=== PATIENT | female | born 1970 | race Caucasian/White ===

== ENCOUNTER → 2018-03-24 11:21 | Outpatient (CLI) | payer OTHER, SELFPAY ==
--- NOTE | 2018-03-24 11:24 | US_ITS ---
STUDY: ULTRASOUND OF THE FEMALE PELVIS - COMPLETE REASON FOR EXAM: Female, 47 years old. Dysfunctional uterine bleeding. LMP: March 19, 2018 TECHNIQUE: Transabdominal and Transvaginal TECHNICAL QUALITY: Adequate. COMPARISON: None. FINDINGS: The uterus is anteverted and is in a midline position. The uterus measures 8.5 x 4.7 x 6.3 cm. Normal uterine cervix. The endometrium measures 12.0 mm in thickness, and is hyperechoic. There is no demonstrated endometrial mass. There is no demonstrated myometrial mass. I.U.D. - The patient does not have an I.U.D. The right ovary is visualized. The right ovary measures 2.1 x 1.8 x 1.7 cm. There is no right ovarian cyst or ovarian mass. There is no visualized right adnexal mass or complex lesion. There is normal arterial and normal venous vascularity. The left ovary is visualized. The left ovary measures 3.5 x 2.5 x 1.5 cm. There is no left ovarian cyst or ovarian mass. There is no visualized left adnexal mass or complex lesion. There is normal arterial and normal venous vascularity. There is no fluid in the cul-de-sac. The pre void volume of the bladder was 50.7 ml. Polycystic ovary disease: No. US/Pelvic (Non ) IMPRESSION: Thickened endometrial stripe. Electronically Signed: Thania Campos MD at 15:11 EDT Tel , Service support ,
--- NOTE | 2018-03-24 11:45 | US_ITS ---
STUDY: ULTRASOUND OF THE FEMALE PELVIS - COMPLETE REASON FOR EXAM: Female, 47 years old. Dysfunctional uterine bleeding. LMP: March 19, 2018 TECHNIQUE: Transabdominal and Transvaginal TECHNICAL QUALITY: Adequate. COMPARISON: None. FINDINGS: The uterus is anteverted and is in a midline position. The uterus measures 8.5 x 4.7 x 6.3 cm. Normal uterine cervix. The endometrium measures 12.0 mm in thickness, and is hyperechoic. There is no demonstrated endometrial mass. There is no demonstrated myometrial mass. I.U.D. - The patient does not have an I.U.D. The right ovary is visualized. The right ovary measures 2.1 x 1.8 x 1.7 cm. There is no right ovarian cyst or ovarian mass. There is no visualized right adnexal mass or complex lesion. There is normal arterial and normal venous vascularity. The left ovary is visualized. The left ovary measures 3.5 x 2.5 x 1.5 cm. There is no left ovarian cyst or ovarian mass. There is no visualized left adnexal mass or complex lesion. There is normal arterial and normal venous vascularity. There is no fluid in the cul-de-sac. The pre void volume of the bladder was 50.7 ml. Polycystic ovary disease: No. US/Transvaginal Non- IMPRESSION: Thickened endometrial stripe. Electronically Signed: Thania Campos MD at 15:11 EDT Tel , Service support ,
== END ==
PROVIDERS: Family Provider Family Medicine; PCP Family Medicine; Visit Provider Obstetrics & Gynecology
DX: N93.9 Abnormal uterine and vaginal bleeding, unspecified (principal); N93.8 Other specified abnormal uterine and vaginal bleeding
CPT/HCPCS: 76830; 76856; 93976

== ENCOUNTER → 2018-04-22 09:43 | Outpatient (CLI) | payer OTHER, SELFPAY ==
--- NOTE | 2018-04-22 12:22 | PFTCOMP ---
COMPLETE PULMONARY FUNCTION TEST INTERPRETATION Brief HPI: Patient is a 47 year old female, currently under the care of myself, who presents to [facility] for complete pulmonary function tests secondary to diagnosis of asthma. Respiratory therapist reports good effort and reproducible results. Interpretation: Forced expiration spirometry shows no large airways obstructive ventilatory defect with an FEV1 of 74% predicted. There is no significant bronchodilator response by ATS criteria. Spirograms are of good quality and plateau normally. The respiratory flow volume loop shows a normal pattern. Lung volumes by body plethysmography show a normal total lung capacity at 5.3 L, 106% predicted. All other lung volumes are within normal limits. Diffusion capacity by carbon monoxide is at the lower limit of normal at 65% predicted. The airway resistance is elevated. Compared to previous pulmonary function tests from 04/07/2017, there has been a significant improvement in lung volumes. Impression: These pulmonary function tests are grossly within normal limits. Diffusion capacity is at the lower limit of normal, but improved from previous.
--- NOTE | 2018-04-22 12:25 | PFTCOMP_ITS ---
COMPLETE PULMONARY FUNCTION TEST INTERPRETATION Brief HPI: Patient is a 47 year old female, currently under the care of myself, who presents to [facility] for complete pulmonary function tests secondary to diagnosis of asthma. Respiratory therapist reports good effort and reproducible results. Interpretation: Forced expiration spirometry shows no large airways obstructive ventilatory defect with an FEV1 of 74% predicted. There is no significant bronchodilator response by ATS criteria. Spirograms are of good quality and plateau normally. The respiratory flow volume loop shows a normal pattern. Lung volumes by body plethysmography show a normal total lung capacity at 5.3 L , 106% predicted. All other lung volumes are within normal limits. Diffusion capacity by carbon monoxide is at the lower limit of normal at 65% predicted. The airway resistance is elevated. Compared to previous pulmonary function tests from 04/07/2017, there has been a significant improvement in lung volumes. Impression: These pulmonary function tests are grossly within normal limits. Diffusion capacity is at the lower limit of normal, but improved from previous.
== END ==
PROVIDERS: Family Provider Family Medicine; PCP Family Medicine; Visit Provider Internal Medicine Critical Care Medicine
DX: J45.20 Mild intermittent asthma, uncomplicated (principal)
CPT/HCPCS: 94060; 94726; 94729

== ENCOUNTER → 2018-10-01 10:07 | Outpatient (CLI) | payer OTHER, SELFPAY ==
[2018-10-01 12:44] LABS: Microalbumin,Random Urine 26.4 mg/L (NO RANGE EST.); Microalbumin:Creatinine Ratio 13.7 mg/g CRE (<30 mg/g CRE)
[2018-10-01 13:01] LABS: AST(SGOT) 34 U/L (15-37); Alanine Aminotransfer ALT/SGPT 58 U/L (13-56); Albumin, Serum 3.6 g/dL (3.2-5.0); Alkaline Phosphatase 80 U/L (45-117); Anion Gap 10 (5-15); BUN 20 mg/dL (7-18); Calcium,Total 9.1 mg/dL (8.5-10.1); Chloride 103 mmol/L (98-107); Cholesterol 151 mg/dL (200); Creatinine, Serum 0.87 mg/dL (0.55-1.02); EST Glomerular Filtration Rate 74 mL/min (>60); Est Glom Filt Rate - Afr Amer 89 mL/min (>60); Globulin 3.7 g/dL (2.2-4.2); Glucose 94 mg/dL (74-106); High Density Lipoprotein 45 mg/dL; Potassium 3.6 mmol/L (3.5-5.1); Protein, Total 7.3 g/dL (6.4-8.2); Sodium Level 143 mmol/L (136-145); Triglycerides 97 mg/dL; Very Low Density Lipoprotein 19 mg/dL (5-40)
[2018-10-01 13:03] LABS: Hemoglobin A1c 6.9 % (4.2-6.3)
--- OUTSIDE RECORDS SUMMARY | 2018-12-05 17:38 | XMS RPT_ITS ---
:1970 Author Organization OHIP Care Team Providers Name Role Phone LUCINDA LI (PATIENT ACCOUNTS COORDINATOR) Attending Unavailable SAVAGE CRESPO Referring Unavailable Malys, Jessa Attending Unavailable Malys, Jessa Referring Unavailable Malys, Jessa Primary Care Unavailable Abi Watts Attending Unavailable Abi Watts Referring Unavailable Malys, Jessa Primary Care Unavailable Abi Watts Attending Unavailable Malys, Jessa Referring Unavailable Malys, Jessa Primary Care Unavailable Michael Roque Attending Unavailable Michael Roque Referring Unavailable Malys, Jessa Primary Care Unavailable Michael Roque Attending Unavailable Malys, Jessa Referring Unavailable Malys, Jessa Primary Care Unavailable Michael Roque Attending Unavailable Michael Roque Referring Unavailable PROBLEMS PROBLEMS DATE TYPE CONDITION / CODE ATTENDING STATUS SOURCE 10/01/2018 Unknown 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, 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 / Repository E11.9(ICD-10) 10/01/2018 Unknown E78.00 - Pure Malys, Jessa Active [facility] a, unspecified / Hospital E78.00(ICD-10) Repository 10/01/2018 Unknown I10 - Essential MalJessa hoover Active [facility] (primary) [facility] hypertension / Hospital I10(ICD-10) Repository 10/01/2018 Unknown Z51.81 - Encounter Jessa Scott Active [facility] for therapeutic [facility] drug level Hospital monitoring / Repository Z51.81(ICD-10) 05/06/2018 Unknown J45.20 - Mild JudeMichael Active [facility] intermittent [facility] asthma, Hospital uncomplicated / Repository J45.20(ICD-10) 03/31/2018 Unknown N93.9 - Abnormal Marcanthony, Active [facility] uterine and vaginal Abi [facility] bleeding, Hospital unspecified / Repository N93.9(ICD-10) 03/11/2018 Active Unknown / LI, Active [facility] UNK(Unknown) LUCINDA (PATIENT ACCOUNTS COORDINATOR) Main [place] Repository PROCEDURES PROCEDURES No Procedure Records FoundRESULTS RESULTS MICROALB:CREAT Collected: 10/01/2018 Status: F [facility] 10:12 AM [facility] REPOSITORY TYPE CODE TESTS RESULT OUT OF RANGE REFERENCE UNITS LAB L501.1200 NO RANGE EST. mg/dL Normal UR CREAT 193.00 LAB L502.0500 NO RANGE EST. mg/L Normal 26.4 MICROALBUMIN ,UR LAB L502.0600 <30 mg/g CRE mg/g CRE Normal 13.7 MALB:CREAT Performed By: #### L502.0250 #### [facility] [place], [place], [address] COMPREHENSIVE METABOLIC Collected: 10/01/2018 Status: F Source: [facility] PROFIL 10:12 AM [facility] REPOSITORY TYPE CODE TESTS RESULT OUT OF RANGE REFERENCE UNITS LAB L501.0100 74-106 mg/dL Normal GLU 94 Result Comment: Please note revised GLUCOSE reference range effective 2017. LAB L501.1000 7-18 mg/dL High BUN 20 LAB L501.1100 0.55-1.02 mg/dL Normal CREAT,SERUM 0.87 Result Comment: The validity of the calculated GFR AND GFRAA in patients over 70 years has not been determined. Clinical correlation is essential. LAB L501.1110 >60 mL/min Normal EST GFR 74 Result Comment: Non- GFR Calc LAB L501.1115 >60 mL/min Normal EST GFR - AA 89 Result Comment: GFR Calc LAB L501.1300 10-20 RATIO High BUN/CRE 23.0 LAB L501.1500 6.4-8.2 g/dL T Normal PROT 7.3 LAB L501.1800 3.2-5.0 g/dL Normal ALB 3.6 LAB L501.1950 2.2-4.2 g/dL Normal GLOB 3.7 LAB L501.2000 0.9-2.4 RATIO Normal A/G 1.0 LAB L501.2200 8.5-10.1 mg/dL CA Normal 9.1 LAB L501.4100 15-37 U/L Normal AST 34 LAB L501.4305 45-117 U/L Normal ALK P 80 LAB L501.4405 13-56 U/L High ALT 58 LAB L501.4600 0.20-1.00 mg/dL T Normal BILI 0.50 LAB L501.5300 136-145 mmol/L NA Normal 143 LAB L501.5600 3.5-5.1 mmol/L K Normal 3.6 LAB L501.5900 98-107 mmol/L CL Normal 103 LAB L501.6100 21.0-32.0 mmol/L Normal CO2 30.0 LAB L501.6200 5-15 Normal GAP 10 Performed By: #### L500.4050, L500.4100 #### [facility] [address] [place], [place], [address] LIPID PROFILE Collected: 10/01/2018 Status: F Source: [facility] 10:12 AM [facility] REPOSITORY TYPE CODE TESTS RESULT OUT OF RANGE REFERENCE UNITS LAB L501.4900 200 mg/dL Normal CHOL 151 Result Comment: <200 mg/dL Desirable 200-240 mg/dL Borderline >240 mg/dL High Risk LAB L501.5000 mg/dL Normal TRIG 97 Result Comment: The drugs N-Acetylcysteine and Metamizole may falsely depress this assay. Serum Triglycerides Reference Interval Normal <150 mg/dL Borderline high 150 - 199 mg/dL High 200 - 499 mg/dL Very High > or = 500 mg/dL LAB L501.6400 mg/dL Normal HDL 45 Result Comment: The drugs N-Acetylcysteine and Metamizole may falsely depress this assay. Reference Range HDL <40 mg/dL Low HDL Cholesterol HDL >or= 60 mg/dL High HDL Cholesterol LAB L501.6500 0-130 mg/dL Normal LDL 87 LAB L501.6600 5-40 mg/dL Normal VLDL 19 Performed By: #### L500.4050, L500.4100 #### [facility] [address] [place], [address] HEMOGLOBIN A1C Collected: 10/01/2018 Status: F Source: [facility] 10:12 AM [facility] REPOSITORY TYPE CODE TESTS RESULT OUT OF RANGE REFERENCE UNITS LAB L501.9985 4.2-6.3 % High HGB A1C 6.9 Performed By: #### L501.9985 #### [facility] [address] [place], [address] PULMONARY VISIT REPORT Observed: 04/28/2018 Status: F Source: [facility] 10:45 AM [facility] REPOSITORY [facility] [address] [place] [address] OFFICE VISIT Date of Service: 04/28/18 MR#: [id number] Acct: [id number] Name: CARLOS MON Rep #: [id number] : 1970 Provider: Michael Roque MD Age/Sex: 47/F [place] [facility] [place] Status: Signed Assessment AND Plan Problems 1. Asthma, mild intermittent, well-controlled J45.20 2. AMELIE (obstructive sleep apnea) G47.33 Plan Patient appears to be doing well from a pulmonary perspective. Patient has had some weight gain, but overall is doing well and responsive to AMELIE therapy. Patient is only requiring as needed albuterol, so no maintenance therapy is indicated. Lung volumes have normalized. Decrease in DLCO likely secondary to known fibrosis following radiation therapy. Patient is requesting transition to [facility] for insurance reasons. Continue current AMELIE therapy and as needed albuterol. Encourage weight loss. HPI 1 Y FU: Chief Complaint: Review test results Details: Patient is a 47-year-old female, currently under the care of Dr. Scott, who presents for evaluation secondary to recent testing. Since last visit, patient denies any ER visits, hospitalizations or prednisone burst. Patient states that she feels subjectively unchanged compared to previous visit. Patient reports that she has a Ventolin inhaler at home. Patient estimates that she uses it every 3-4 months and is typically associated with a URI. Patient has not reported any nocturnal cough, dyspnea on exertion or chest pain. No wheezing is been reported. Patient reports that she has been compliant with AMELIE therapy. Patient states that she wears this every night and wakes up refreshed. On the rare occasion that she forgets to use her machine, patient does report the next day will be a tough one. Patient has had some increase in weight. Testing personally reviewed with the patient Complete PFT (04/22/2018): Grossly within normal limits with improved lung volumes compared to previous (FVC 76%, FEV1 72%, TLC 106%, DLCO 65%) Intake Vital Signs04/28/18 Height 5 ft 4 in 04/28/18 Weight: 81.647 kg Intake Visit Reasons: 1 Y FU DME Vendor: [employer] Accompanied by: Self Allergies naproxen sodium [From Aleve] Allergy (Verified 04/28/18 10:12) Itching, AIRWAY SWELLS amoxicillin Adverse Reaction (Verified 04/28/18 10:12) NAUSEA/VOMITTING hydrocodone bitartrate [From Vicodin] Adverse Reaction (Verified 04/28/18 10:12) NAUSEA/VOMITTING Medications Atenolol [Tenormin (beta bonnie)] 50 mg PO DAILY 11/26/15 [History Confirmed 04/28/18] Lisinopril/Hydrochlorothiazide [Zestoretic 06/25.5 Tablet] 1 tab PO DAILY 11/26/15 [History Confirmed 04/28/18] Potassium Chloride [K-Dur] 10 meq PO DAILY 11/26/15 [History Confirmed 04/28/18] Sertraline HCl [Zoloft] 50 mg PO DAILY 11/26/15 [History Confirmed 04/28/18] Albuterol Inhaler [Ventolin Hfa (SP)] 2 puff INHALATION [id number] #[id number] inhaler 01/16/16 [Rx Confirmed 04/28/18] Clindamycin [Cleocin] 450 mg PO TID #63 cap 01/16/16 [Rx Confirmed 04/28/18] tamoxifen 20 mg tablet 20 mg PO QDAY 10/05/17 [History Confirmed 04/28/18] oxycodone-acetaminophen 5 mg-325 mg tablet 1 tab PO Q4H PRN #20 tab 03/22/18 [Rx Confirmed 04/28/18] tranexamic acid 650 mg tablet 1,300 mg PO Q8H PRN 5 Days #30 tab 03/22/18 [Rx Confirmed 04/28/18] PFSH Medical History HTN (hypertension) (Chronic) History of breast cancer (Acute) Lung collapse (Acute) CPAP (continuous positive airway pressure) dependence (Acute) Surgical History S/P lumpectomy, left breast (Acute) Family History Grandmother Breast cancer Father Hypertension Social History Smoking Status: Never smoker alcohol intake: never substance use type: does not use caffeine: No frequency: 1-2 times per week seatbelt use: always do you feel safe at home: Yes additional social history: Tulio Gillis Patient is a stay at home mom Review of Systems Const CONSTITUTIONAL: Negative anorexia, body ache, chills, daytime sleepiness, fever(s), night sweats, oral thrush, stops breathing during sleep, weight loss, sleeping in chair, fatigue, weight loss, weight gain, frequent colds, seasonal allergies, other, headache(s) or orthopnea EETM Ear Nose Throat Mouth: Positive sinus pressure; negative hoarseness, dry mouth in morning, change in vision, itchy eyes, eye pain, swallowing Difficulty, ear pain, headache(s), mouth pain, nasal congestion, nasal discharge, sinus pain, sore throat, other, hard of hearing, hearing normal, nose bleed or post nasal drip Cardio Cardiovascular: Negative chest pain, chest pain at rest, chest pain with activity, irregular heart rhythm, edema, shortness of breath when lying down, palpitations, other or murmur Resp Respiratory: Positive as per HPI; negative shortness of breath, pain with cough, wheezing, chest congestion, cough, chest tightness, pain on inspiration, inhalers, increase use of rescue inhalers, snoring, apnea or other Gastro Gastrointestional: Negative bloody stools, change in appetite, difficulty swallowing, reflux, hematemesis, melena stool, loose stool, constipation or other Genitourinary: Negative blood in urine, nocturia, pain with urination or other Musc Musculoskeletal: Negative body pain, back pain, neck pain or other Skin/Breast Skin/Breast: Negative dry skin, itching, unusual bruising, breast lump, other or rash Neuro Neurological: Negative restless legs, confusion, weakness or other Psych Psychocological: Negative abnormal sleep pattern, anxiety, thoughts of hurting self/others, hopelessness or other Lymph Lymphatic: Negative easy bleeding, easy bruising, other or swollen lymph nodes Exam Const Constitutional: Positive conversant, cooperative, in no acute respiratory distress, healthy appearing, well developed, well nourished, good hygiene and obese; negative smells of smoke, frail appearing or wearing supplemental oxygen Head Head: Positive normocephalic and atraumatic; negative cyanosis of lips/distal nose, frontal sinus tenderness or maxillary sinus tenderness Eyes Eye: Positive clear conjunctiva; negative nystagmus, scleral abnormality or cataract present Ears Ear: Positive external ears normal; negative hard of hearing or hearing normal Nose Nose: Positive external nose normal, septum normal and no nasal discharge; negative epistaxis or nasal polyp Mouth Mouth: Positive oral mucosae normal, no lesions, good dentition and crowded posterior oropharynx; negative post nasal drip, malodorous breath or oral thrush present Mallampati Score: III: Mallampati Score Neck Neck: Positive normal visual inspection, full ROM and trachea midline; negative lymphadenopathy or JVD Chest Wall Chest: Positive normal inspection of the chest and symmetric chest movement; negative crepitus or tenderness Resp lung sounds: Positive clear to auscultation, good air exchange, normal expiratory time and normal respiratory effort; negative wheezes, rhonchi, rales, use of accessory muscles, wheeze present on forced exhalation or dullness to percussion Cardio Cardiac: Positive regular rate, regular rhythm, S1 normal, S2 normal, rub, gallop and normal PMI; negative murmur GI GI: Positive normal to inspection, normal bowel sounds and obese; negative distended, ascites or epigastric tenderness Genitourinary: Positive deferred Musc Musculoskeletal: Positive steady gait; negative using an assistive device for ambulation, kyphosis or scoliosis Skin Pulmonary Skin Exam: Positive intact; negative rash, erythema, ulcers, lesion or dermal atrophy Pruitt skin Pulses Pulse: Yes radial pulses present Extremities Extremities: Yes capillary refill normal, No clubbing, No cyanosis, No edema, No stasis dermatitis Neuro Neurologic: Yes conversant, Yes no focal neuro deficits, Yes normal concentration, Yes understands questions, Yes cooperative, Yes normal cognition, Yes normal coordination Lymph Lymphatic: No lymphadenopathy Psych Appearance: Positive grossly normal Mental Status: Positive mental status grossly normal Mood: Positive congruent mood Affect: Positive normal affect Coding Level of Care Code Off vis,est,level 3 Diagnoses Asthma, mild intermittent, well-controlled J45.20 AMELIE (obstructive sleep apnea) G47.33 04/28/18 1045 <Electronically signed by Michael Roque MD> Date Michael Roque MD Cosigner Signature: Date (if applicable) CC: Jessa Scott DO PULMONARY FUNCTION Observed: 04/22/2018 Status: F Source: [facility] REPORT COMP 12:25 PM [facility] REPOSITORY [facility] Pulmonary Services/Neurology [address] [place] [address] MR#: [id number] Acct: [id number] Name: CARLOS MON Rep #: [id number] : 1970 47 From: Michael Roque MD Referring Dr: Michael Roque MD Status: REG CLI Ordering Dr: Date: Location: [facility] Sex: F C COMPLETE PULMONARY FUNCTION TEST INTERPRETATION Brief HPI: Patient is a 47 year old female, currently under the care of myself, who presents to [facility] for complete pulmonary function tests secondary to diagnosis of asthma. Respiratory therapist reports good effort and reproducible results. Interpretation: Forced expiration spirometry shows no large airways obstructive ventilatory defect with an FEV1 of 74% predicted. There is no significant bronchodilator response by ATS criteria. Spirograms are of good quality and plateau normally. The respiratory flow volume loop shows a normal pattern. Lung volumes by body plethysmography show a normal total lung capacity at 5.3 L, 106% predicted. All other lung volumes are within normal limits. Diffusion capacity by carbon monoxide is at the lower limit of normal at 65% predicted. The airway resistance is elevated. Compared to previous pulmonary function tests from 04/07/2017, there has been a significant improvement in lung volumes. Impression: These pulmonary function tests are grossly within normal limits. Diffusion capacity is at the lower limit of normal, but improved from previous. 04/22/18 1225 <Electronically signed by Michael Roque MD> Date Michael Roque MD CC: Michael Roque MD; Jessa Kjkiko DO Date Dictated: 04/22/18 1222 Date Transcribed: 04/22/18 1222 Core Analyst: SHARON Signed HAT BRIM CURLER OFFICE VISIT Observed: 03/31/2018 Status: F Source: [facility] REPORT 12:49 PM [facility] REPOSITORY [facility] [address] [place] [address] OFFICE VISIT Date of Service: 03/31/18 MR#: [id number] Acct: [id number] Name: CARLOS MON Rep #: [id number] : 1970 Provider: Abi Watts MD Age/Sex: 47/F [place] [facility] [place] Status: Signed Intake Intake Visit Reasons: F/U VB Allergies naproxen sodium [From Aleve] Allergy (Verified 10/05/17 09:17) Itching, AIRWAY SWELLS amoxicillin Adverse Reaction (Verified 10/05/17 09:17) NAUSEA/VOMITTING hydrocodone bitartrate [From Vicodin] Adverse Reaction (Verified 10/05/17 09:17) NAUSEA/VOMITTING Medications Atenolol [Tenormin (beta bonnie)] 50 mg PO DAILY 11/26/15 [History Confirmed 10/05/17] Lisinopril/Hydrochlorothiazide [Zestoretic 10/12.5 Tablet] 1 tab PO DAILY 11/26/15 [History Confirmed 10/05/17] Potassium Chloride [K-Dur] 10 meq PO DAILY 11/26/15 [History Confirmed 10/05/17] Sertraline HCl [Zoloft] 50 mg PO DAILY 11/26/15 [History Confirmed 10/05/17] Albuterol Inhaler [Ventolin Hfa (SP)] 2 puff INHALATION [id number] #[id number] inhaler 01/16/16 [Rx Confirmed 10/05/17] Clindamycin [Cleocin] 450 mg PO TID #63 cap 01/16/16 [Rx] tamoxifen 20 mg tablet 20 mg PO QDAY 10/05/17 [History Confirmed 10/05/17] oxycodone-acetaminophen 5 mg-325 mg tablet 1 tab PO Q4H PRN #20 tab 03/22/18 [Rx] tranexamic acid 650 mg tablet 1,300 mg PO Q8H PRN 5 Days #30 tab 03/22/18 [Rx] PFSH Medical History HTN (hypertension) (Chronic) History of breast cancer (Acute) Lung collapse (Acute) CPAP (continuous positive airway pressure) dependence (Acute) Surgical History S/P lumpectomy, left breast (Acute) Family History Grandmother Breast cancer Father Hypertension Social History Smoking Status: Never smoker alcohol intake: never substance use type: does not use caffeine: No frequency: 1-2 times per week seatbelt use: always do you feel safe at home: Yes additional social history: Tulio Gillis Patient is a stay at home mom HPI F/U VB: Details: CARLOS MON is a 47 year old who presents for fu of AUB. she has only had one cycle in the last year and then had one last month that was very heavy and painful, took lysteda which stopped bleeding and felt much better. normal us. she is on tamoxifen no PCB or other irregular bleeding. Pregancy History 2 Elective abortions Hx Para 2 Spontaneous abortions Past Pregnancies Del. DatName GA/WeeksOutcome Route [facility] LocaProviderFOB e ht en ia tn Unknown 1996 [address] Unknown 1999 Dejon f ROS Const Constitutional: Denies poor appetite, headache(s), fever(s), increased appetite, weight gain, weight loss or fatigue GI GI: Reports as per HPI; denies vomiting, nausea, abdominal pain or constipation : Reports as per HPI; denies urinary urgency, vaginal discharge, urinary frequency, vaginal itching, vaginal odor, vaginal dryness, urinary incontinence, urinary hesitancy, difficulty urinating, painful urination or nipple discharge Skin Skin/Breast: Denies breast lump, breast pain, breast skin changes, nipple discharge or change in hair Exam Const General: cooperative, healthy appearing, comfortable, no acute distress, well developed Nutritional Appearance: average body habitus Orientation: alert HENMT Head: normal to inspection, normocephalic Neck Neck: normal visual inspection, trachea midline Thyroid: thyroid normal Resp Effort AND Inspection: normal respiratory effort Skin General: no rashes or lesions noted Assessment AND Plan Problems 1. Abnormal uterine bleeding N93.9 Plan discussed and recommend exp managmeent. discussed emb if persistent. Coding Level of Care Code Off vis,est,level 3 Diagnoses Abnormal uterine bleeding N93.9 03/31/18 1249 <Electronically signed by Abi Watts MD> Date Abi Watts MD Cosigner Signature: Date (if applicable) CC: TRANSVAGINAL Observed: 03/24/2018 Status: F Source: [facility] NON- 11:45 AM [facility] REPOSITORY [facility] Imaging Services [address] [place] [id number] Transvaginal Non- MR#: [id number] Acct: [id number] Name: CARLOS MON Rep #: [id number] : 1970 F 47 From: Thania Campos MD PCP: Jessa Scott DO Status: REG CLI Study: Transvaginal Non- Date of Exam: 03/24/18 Exam# [id number] Ordering Dr: Abi Watts MD STUDY: ULTRASOUND OF THE FEMALE PELVIS - COMPLETE REASON FOR EXAM: Female, 47 years old. Dysfunctional uterine bleeding. LMP: March 19, 2018 TECHNIQUE: Transabdominal and Transvaginal TECHNICAL QUALITY: Adequate. COMPARISON: None. FINDINGS: The uterus is anteverted and is in a midline position. The uterus measures 8.5 x 4.7 x 6.3 cm. Normal uterine cervix. The endometrium measures 12.0 mm in thickness, and is hyperechoic. There is no demonstrated endometrial mass. There is no demonstrated myometrial mass. I.U.D. - The patient does not have an I.U.D. The right ovary is visualized. The right ovary measures 2.1 x 1.8 x 1.7 cm. There is no right ovarian cyst or ovarian mass. There is no visualized right adnexal mass or complex lesion. There is normal arterial and normal venous vascularity. The left ovary is visualized. The left ovary measures 3.5 x 2.5 x 1.5 cm. There is no left ovarian cyst or ovarian mass. There is no visualized left adnexal mass or complex lesion. There is normal arterial and normal venous vascularity. There is no fluid in the cul-de-sac. The pre void volume of the bladder was 50.7 ml. Polycystic ovary disease: No. US/Transvaginal Non- IMPRESSION: Thickened endometrial stripe. Electronically Signed: Thania Campos MD at 15:11 EDT Tel , Service support , CC: Jessa Scott DO; Abi Watts MD Core Analyst: Signed PELVIC (NON ) Observed: 03/24/2018 Status: F Source: VIVIANA 11:24 AM [facility] REPOSITORY [facility] Imaging Services [address] [place] [address] Pelvic (Non ) MR#: [id number] Acct: [id number] Name: CARLOS MON Rep #: [id number] : 1970 F 47 From: Thania Campos MD PCP: Jessa Scott DO Status: REG CLI Study: Pelvic (Non ) Date of Exam: 03/24/18 Exam# [id number] Ordering Dr: Abi Watts MD STUDY: ULTRASOUND OF THE FEMALE PELVIS - COMPLETE REASON FOR EXAM: Female, 47 years old. Dysfunctional uterine bleeding. LMP: March 19, 2018 TECHNIQUE: Transabdominal and Transvaginal TECHNICAL QUALITY: Adequate. COMPARISON: None. FINDINGS: The uterus is anteverted and is in a midline position. The uterus measures 8.5 x 4.7 x 6.3 cm. Normal uterine cervix. The endometrium measures 12.0 mm in thickness, and is hyperechoic. There is no demonstrated endometrial mass. There is no demonstrated myometrial mass. I.U.D. - The patient does not have an I.U.D. The right ovary is visualized. The right ovary measures 2.1 x 1.8 x 1.7 cm. There is no right ovarian cyst or ovarian mass. There is no visualized right adnexal mass or complex lesion. There is normal arterial and normal venous vascularity. The left ovary is visualized. The left ovary measures 3.5 x 2.5 x 1.5 cm. There is no left ovarian cyst or ovarian mass. There is no visualized left adnexal mass or complex lesion. There is normal arterial and normal venous vascularity. There is no fluid in the cul-de-sac. The pre void volume of the bladder was 50.7 ml. Polycystic ovary disease: No. US/Pelvic (Non ) IMPRESSION: Thickened endometrial stripe. Electronically Signed: Thania Campos MD at 15:11 EDT Tel , Service support , CC: Jessa Scott DO; Abi Watts MD Core Analyst: Signed PROGRESS Observed: 03/11/2018 Status: COMPLETED Source: READER 8:49 AM [facility] [place] REPOSITORY HNO ID: [id number] Author: Lucinda Li Service: (none) Author Type: Nurse Practitioner Type: Progress Notes Filed: 03/11/2018 3:01 PM Note Text: Chief Complaint Patient presents with: Established Patient HPI: Carlos Mon is a 47 year old female who presents here today for follow up DCIS. Per Dr. Balderrama's previous note: H/o pt. was found to have a focal area of asymmetry of the left breast that was interpreted as indeterminate on screening mammogram 09/29/2015. A diagnostic study done with US on 10/16/2015 revealed a 1.6 x 1.0 cm irregular region in the left breast at 3:00 anterior depth that was irregular and hypoechoic. It correlated with the mammography findings and was suspicious for malignancy. ?? The patient underwent a left breast core biopsy on 11/03/2015. Pathology identified a complex atypical papillary lesion. And therefore the patient subsequently underwent a lumpectomy on 12/03/2015. ?? 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 The architectural pattern was papillary and cystic, nuclear grade 2, focal necrosis. The closest margin was the inferior margin measuring 4 mm. Estrogen receptors were quantified at greater than 95%, strong with NC 78%, moderate. ?? Off OCP since about time of mammogram. ?? Previous therapy: 1) Radiation completed 02/21/2016. ?? Current therapy: 1) Tamoxifen. ? No complaints. ? Appetite:good Energy level:good Denies fevers or recent illness. 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 The ROS is otherwise negative. Past medical history, appointments, medications, allergies reviewed. No changes. EXAM: BP 132/86 Pulse 79 Temp 36.7 ?C (98.1 ?F) Wt 80.5 kg (177 lb 8 oz) BMI 30.47 kg/m? APPEARANCE Well appearing, alert, in no acute distress, well-hydrated, well nourished. HEART RRR with normal S1 and S2, no murmurs LUNG clear to auscultation BREAST FEMALE no mass/nodule b/l, scar to L outer/radiation changes LYMPH NODES No cervical lymphadenopathy, No supraclavicular lymphadenopathy and No axillary lymphadenopathy. ABDOMEN bowel sounds normoactive, no bruits, soft, non-tender, non-distended, without organomegaly or palpable masses EXTREMITIES No edema NEURO Awake, alert and oriented x 3, Normal gait and No involuntary motions. SKIN Skin color, texture, turgor normal, no suspicious rashes or lesions ASSESSMENT/PLAN: 1. Ductal carcinoma in situ (DCIS) of left breast - ICD9: 233.0, ICD10: D05.12 (primary diagnosis) 2. Encounter for screening mammogram for high-risk patient - ICD9: V76.11, ICD10: Z12.31 - No concerning findings on exam. - Tolerating tamoxifen well. Continue. Rx done. - Mammogram due in 2018. - Discussed with pt. to discuss with PCP weaning off of zoloft and changing medication. - Follow up after mammogram. - Pt. aware to call office with any questions/concerns. The patient indicates understanding of these issues and agrees with the plan. Lucinda Li APRN.ANGELA CNOVSP Observed: 03/11/2018 Status: COMPLETED Source: READER 8:30 AM [facility] REPOSITORY Visit (SP) Office (MATILDE) CARLOS MON ([id number]) 1970 F Date Time Provider Department 03/11/18 8:30 AM LUCINDA LI (ANGELA) MATILDE During your visit today, we recorded the following information about you: Temperature Pulse Blood pressure Weight 98.1 degrees 79/minute 132/86 80.5 kg Janice Alas LPN, MIKHAIL 03/11/2018 8:49 AM Signed Est pt., 6 month f/u MIKHAIL Underwood APRN.PATIENT ACCOUNTS COORDINATOR 03/11/2018 3:01 PM Signed Chief Complaint Patient presents with: Established Patient HPI: Carlos Mon is a 47 year old female who presents here today for follow up DCIS. Per Dr. Balderrama's previous note: H/o pt. was found to have a focal area of asymmetry of the left breast that was interpreted as indeterminate on screening mammogram 09/29/2015. A diagnostic study done with US on 10/16/2015 revealed a 1.6 x 1.0 cm irregular region in the left breast at 3:00 anterior depth that was irregular and hypoechoic. It correlated with the mammography findings and was suspicious for malignancy. ?? The patient underwent a left breast core biopsy on 11/03/2015. Pathology identified a complex atypical papillary lesion. And therefore the patient subsequently underwent a lumpectomy on 12/03/2015. ?? 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 The architectural pattern was papillary and cystic, nuclear grade 2, focal necrosis. The closest margin was the inferior margin measuring 4 mm. Estrogen receptors were quantified at greater than 95%, strong with NC 78%, moderate. ?? Off OCP since about time of mammogram. ?? Previous therapy: 1) Radiation completed 02/21/2016. ?? Current therapy: 1) Tamoxifen. ? No complaints. ? Appetite:good Energy level:good Denies fevers or recent illness. 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 The ROS is otherwise negative. Past medical history, appointments, medications, allergies reviewed. No changes. EXAM: BP 132/86 Pulse 79 Temp 36.7 ?C (98.1 ?F) Wt 80.5 kg (177 lb 8 oz) BMI 30.47 kg/m? APPEARANCE Well appearing, alert, in no acute distress, well- hydrated, well nourished. HEART RRR with normal S1 and S2, no murmurs LUNG clear to auscultation BREAST FEMALE no mass/nodule b/l, scar to L outer/radiation changes LYMPH NODES No cervical lymphadenopathy, No supraclavicular lymphadenopathy and No axillary lymphadenopathy. ABDOMEN bowel sounds normoactive, no bruits, soft, non-tender, non-distended, without organomegaly or palpable masses EXTREMITIES No edema NEURO Awake, alert and oriented x 3, Normal gait and No involuntary motions. SKIN Skin color, texture, turgor normal, no suspicious rashes or lesions ASSESSMENT/PLAN: 1. Ductal carcinoma in situ (DCIS) of left breast - ICD9: 233.0, ICD10: D05.12 (primary diagnosis) 2. Encounter for screening mammogram for high-risk patient - ICD9: V76.11, ICD10: Z12.31 - No concerning findings on exam. - Tolerating tamoxifen well. Continue. Rx done. - Mammogram due in 2018. - Discussed with pt. to discuss with PCP weaning off of zoloft and changing medication. - Follow up after mammogram. - Pt. aware to call office with any questions/concerns. The patient indicates understanding of these issues and agrees with the plan. Lucinda Li, JULIÁN.PATIENT ACCOUNTS COORDINATOR Referring Provider: SAVAGE CRESPO [[id number]] Allergies As of Date: 03/11/2018 Noted Allergy Reaction ALEVE (NAPROXEN SODIUM) 03/27/2009 7 - Swelling Comments: had swelling all over can take advil AUGMENTIN (AMOXICILLIN-POT CLAVUL*11/09/2014 11 - Vomiting VICODIN TUSS (HYDROCODONE-GUAIFEN*05/12/2006 11 - Vomiting Date Reviewed: 03/11/2018 Reviewed by: Lucinda (Paleology Teacher) Guillermo - Fully Assessed Reason for Visit: Established Patient [175] Primary Visit Diagnosis:Ductal carcinoma in situ (DCIS) of left breast [D05.12] Other Visit Diagnosis:Encounter for screening mammogram for high-risk patient [Z12.31] Order(s):tamoxifen (NOLVADEX) 20 mg tabletTake 1 tablet by mouth once daily.Disp: 90 tabletRfl: 3 MARGIE SCREENING [[id number]] Order #: [id number] FUTURE Follow-up and Disposition History Recorded Prescriptions as of 03/11/2018 Sig: TAMOXIFEN 20 MG TABLET Take 1 tablet by mouth once d* SERTRALINE 50 MG TABLET TAKE 1 TABLET DAILY ATENOLOL 50 MG TABLET TAKE 1 TABLET DAILY POTASSIUM CHLORIDE ER 10 MEQ * TAKE 1 TABLET DAILY LISINOPRIL 20 MG-HYDROCHLOROT* Take 1 tablet by mouth once d* CPAP Initiate CPAP @ 9 cm of water* Medication notes this encounter BLOOD-GLUCOSE METER KIT >> Janice Alas LPN, LPN 03/11/2018 8:34 AM >> JANICE ALAS ThuMar 11, 2018 8:34 AM Not using BLOOD SUGAR DIAGNOSTIC STRIPS >> Janice Alas LPN, LPN 03/11/2018 8:34 AM >> JANICE ALAS ThuMar 11, 2018 8:34 AM Not using LANCETS >> Janice Alas LPN, LPN 03/11/2018 8:34 AM >> JANICE ALAS ThuMar 11, 2018 8:34 AM Not using Problem List As Of Date 03/11/2018 Noted Resolved Cough [R05] INVALID FOR*12/15/2010 Chest pain, unspecified [R07.9] INVALID FOR*12/15/2010 Stress and adjustment reaction [F43.29] INVALID FOR*09/25/2016 Depression [F32.9] INVALID FOR* More... AMELIE (obstructive sleep apnea) [G47.33] INVALID FOR*09/12/2013 AMELIE (obstructive sleep apnea) [G47.33] INVALID FOR* More... Abnormal mammogram [R92.8] INVALID FOR*02/19/2016 DCIS (ductal carcinoma in situ) [D05.10] INVALID FOR* More... Essential hypertension with goal blood pressure*INVALID FOR* Essential hypertension, benign [I10] 06/05/2017 Diabetes mellitus type II, controlled (HCC) [E1* Obesity (BMI 30.0-34.9) [E66.9] Visit Notes: >> Janice Alas LPN ThuMar 11, 2018 8:35 AM Status: Signed Est pt., 6 month f/u Janice Alas LPN Encounter Status:Closed by LUCINDA LI CNP on 03/11/18 ALLERGIES ALLERGIES DATE TYPE / CODE NAME / CODE REACTION SEVERITY SOURCE 04/28/2018 Drug hydrocodone nausea/vomittin Unknown Viviana Allergy/416 bitartrate/[id number] g [facility] 858106([facility] 555(RXNO) [facility] ED CT) Repository 04/28/2018 Drug naproxen Itching, AIRWAY Unknown Kevil Allergy/416 sodium/[id number]( SWELLS [facility] 204811([facility] 04/28/2018 Drug amoxicillin/Y02388 nausea/vomittin Unknown Kevil Allergy/416 3675(RXNORM) g [facility] 502984([facility] ED CT) Repository 11/09/2014 DRUG/051306 AMOXICILLIN-POT Vomiting [facility] 003(SNOMED CLAVULANATE [address] [place] [address]) Repository 03/27/2009 DRUG NAPROXEN SODIUM SWELLING [facility] INGREDI/419 [address] [place] 236700(SNOM Repository ED CT) 05/12/2006 DRUG/291864 HYDROCODONE-GUAIFE Vomiting [facility] 003(SNOMED NESIN [address] [place] [address]) Repository ENCOUNTERS ENCOUNTERS ADMIT/DISCHARGE ACCOUNT ADMITTING ENCOUNTER LOCATION SOURCE NUMBER CLASS 10/01/2018 [id number] [facility] ing:MTLAB Repository 04/28/2018/04/28/20 [id number] Ambulatory BMSBuilding:B [place] [address] Repository 04/22/2018 [id number] Ambulatory [facility] ing:PSN Repository 04/22/2018 [id number] Ambulatory BMSBuilding:W [facility] Repository 03/31/2018/03/31/20 [id number] Ambulatory BMSBuilding:B Viviana 18 MS.[facility] Repository 03/24/2018 [id number] Ambulatory [facility] ing:US Repository 03/11/2018/03/12/20 [id number] Ambulatory [address] Repository PAYERS PAYERS ENCOUNTER GUARANTOR PAYER SUBSCRIBER SOURCE 10/01/2018 JESUS [id number] TR Insurance:Gaurav JONESIDOB: [address] Number: [id number] Hospital [address]Rsy: (517) [id number] Repository [phone] () Date:7922-92-15[address] [place] [address]IK: 10/01/2018 Secondary NOT GIVENUNK Viviana Insurance:SELF PAY [facility] Effective Repository Date:2018-10-01 04/28/2018 ROGE Primary JESUS Michelle [id number] TR Insurance:AETNAPolicy GUIDETTIDOB: [address] Number: [id number] Hospital [address]Gri: (330 [id number] Repository [phone] (HP) Date:1797-71-90[address] [address]PY: 04/28/2018 Secondary NOT GIVENUNK Viviana Insurance:SELF PAY [facility] Number: Effective Repository Date:2018-04-21 04/22/2018 Roge Primary Jesus Michelle [id number] TR Insurance:AETNAPolicy GuidettiDOB: [address] Number: [id number] Hospital [address]Mwe: (330 [id number] Repository [phone] (HP) Date:9699-57-01[address]J [address] [place] [address]JT: 04/22/2018 Secondary NOT GIVENUNK Kevil Insurance:SELF PAY [facility] Number: Effective Repository Date:2018-01-14 04/22/2018 ROGE Primary JESUS Michelle [id number] TR Insurance:AETNAPolicy GUIDETTIDOB: [address] [place] Number: [id number] Hospital [address]Vxp: 330 [id number] Repository [phone] () Date:5520-56-92[address] [address]XY: 04/22/2018 Secondary NOT GIVENUNK Viviana Insurance:SELF PAY [facility] Number: Effective Repository Date:2018-04-22 03/31/2018 Roge Primary Jesus Michelle [id number] TR Insurance:AETNAPolicy GuidettiDOB: [address] Number: [id number] Hospital [address]Ctv: 330 [id number] Repository [phone] () Date:9462-94-80[address] [address]HM: 03/31/2018 Secondary NOT GIVENUNK Kevil Insurance:SELF PAY [facility] Number: Effective Repository Date:2018-03-31 03/24/2018 Roge Primary Roge Kevil [id number] TR Insurance:AETNAPolicy GuidettiDOB: [address] Number: [id number] Hospital [address]Psa: 330 [id number] Repository [phone] () Date:5783-21-11[address] [address]EN: 03/24/2018 Secondary NOT GIVENUNK Kevil Insurance:SELF PAY [facility] Number: Effective Repository Date:2018-03-22
== END ==
PROVIDERS: Family Provider Family Medicine; PCP Family Medicine; Referring Provider Family Medicine; Visit Provider Family Medicine
DX: E11.9 Type 2 diabetes mellitus without complications (principal); E78.00 Pure hypercholesterolemia, unspecified; I10 Essential (primary) hypertension; Z51.81 Encounter for therapeutic drug level monitoring
CPT/HCPCS: 36415; 80053; 80061; 82043; 82570; 83036

== ENCOUNTER 2018-10-13 10:46 | Emergency (ER) | payer OTHER, SELFPAY ==
[2018-10-13 10:46] VITALS: BP 123/87; PULSE 114; RESP 14; TEMP 36.4; O2SAT 94; BMI 30.4
[2018-10-13 10:48] VITALS: TEMP 36.4
--- NOTE | 2018-10-13 10:59 | RAD_ITS ---
STUDY: X-RAY CHEST REASON FOR EXAM: Female, 48 years old. Cough and congestion since Thursday. Patient now with nausea/vomiting/diarrhea. TECHNIQUE: PA and lateral views of the chest. COMPARISON: PA and lateral chest is remain 2015. FINDINGS: The lungs are clear but mildly underexpanded compared to prior study with slight crowding in the bases. There is no demonstrated pleural abnormality. Normal size heart. Normal mediastinum and arlet. Normal visualized pulmonary arteries. Normal visualized aortic arch and descending thoracic aorta. There are stable degenerative changes of the lower thoracic spine, and there is a stable minor lower thoracic levoscoliosis. Normal visualized ribs, clavicles, and shoulders. There is no demonstrated abnormality of the visualized soft tissue structures of the upper abdomen. RAD/Chest PA and Lateral IMPRESSION: No acute cardiopulmonary disease. Electronically Signed: Jayden Ann MD at 12:35 EST , Service support ,
[2018-10-13 11:30] LABS: Absolute Lymphocyte Count 1.13 X10^3/ul (0.83-4.51); Absolute Neutrophil Count 5.5 X10^3/uL (2.0-7.7); Basophil# 0.01 X10^3/uL; Basophil% 0.1 % (0-1); Eosinophil# 0.06 X10^3/uL; Eosinophils% 0.8 % (0-5); Hematocrit 41.8 % (37-47); Hemoglobin 13.2 g/dl (12.0-15.0); Lymphocyte # 1.13 X10^3/ul (4.0); Lymphocyte % 15.1 % (19-41); Mean Corp Hgb Conc 31.6 g/gl (32-36); Mean Corpuscular Hgb 29.3 pg (27.0-32.0); Mean Corpuscular Volume 92.7 fL (81-99); Mean Platelet Vol. 9.7 fl (6.2-12.0); Monocyte% 10.7 % (0-10); Neutrophil # 5.48 X10^3/uL (2.7-7.7); POSITIVE COUNT NO; POSITIVE DIFFERENTIAL NO; POSITIVE MORPHOLOGY NO; Platelet Count 186 K/mm3 (150-450); RBC Distribution Width CV 13.6 % (11.6-14.6); Red Blood Count 4.51 M/mm3 (4.2-5.4); White Blood Count 7.5 K/mm3 (4.4-11.0)
[2018-10-13] MEDS: Ondansetron 4 MG/2 ML Vial IV (11:38)
[2018-10-13] MEDS: 0.9% Normal Saline 1,000 ML 1000 ML IV (11:38)
[2018-10-13 11:43] LABS: Anion Gap 12 (5-15); BUN 21 mg/dL (7-18); BUN/Creat Ratio 19.6 RATIO (10-20); Chloride 102 mmol/L (98-107); Creatinine, Serum 1.07 mg/dL (0.55-1.02); EST Glomerular Filtration Rate 58 mL/min (>60); Est Glom Filt Rate - Afr Amer 70 mL/min (>60); Estimated Creatinine Clearance 54.92 ml/min; Glucose 117 mg/dL (74-106); Potassium 3.1 mmol/L (3.5-5.1); Sodium Level 143 mmol/L (136-145)
--- NOTE | 2018-10-13 12:36 | ED.DCSUM_ITS ---
- ER Visit Summary Date of Service: 10/13/18 Chief Complaint: Nausea, vomiting, and diarrhea [] History of Present Illness: The patient is a 48 F [presents the emergency department with illness that started 3 days ago. Patient states that initially she started with some nausea and dry heaves 3 days ago. Patient had a cough with that and at times is had some yellow sputum. Patient also described body aches times 3 days as well as a headache. Patient has not vomited since last night. Patient denies any abdominal pain. Patient states the diarrhea started yesterday she had about 2-3 episodes of some watery stool. She denies any sick contacts. Patient has a history of asthma, hypertension, sleep apnea, and history of breast cancer.] Physical Examination: [HEENT-PERRLA, EOMI. Cranial nerves II through XII grossly intact. TMs clear. Mucous membranes slightly dry. No adenopathy. Cardiovascular-regular rate and rhythm without murmur or ectopy Lungs-clear to auscultation, chest wall stable without crepitus or subcu emphysema Abdomen-normoactive bowel sounds, soft, nontender, no rebound or rigidity, no peritoneal signs. Extremities-intact ?4, normal range of motion, normal pulses, atraumatic] Test Results: [CBC with differential showing a 7.5, hemoglobin 13, hematocrit 42, platelets 26. Chemistries unremarkable other than a slightly depressed potassium 3.1. BUN was 21 and creatinine 1.07. Influenza screen was positive for influenza A. Chest x-ray showed nothing acute.] Emergency Department Course and Treatment: [Was given a liter normal same fluid bolus as well as Toradol and Zofran.] Treatment Plan: [Patient will be given a prescription for Zofran and advised to push fluids] Disposition: [Discharged home in stable condition] Impression: [Influenza] This note was generated with [employer] dictation software. It may contain incorrect words, spelling, and punctuation that were not noted in review of the chart prior to signing ED Disposition - Plan for ED Patient: Chief Complaint: General Illness Referrals: Jessa Scott DO [Primary Care Provider] -
--- NOTE | 2018-10-13 12:36 | ED.DEP ---
ED Disposition - Plan for ED Patient: Chief Complaint: General Illness Instructions: ED Flu Prescriptions: Ondansetron [Zofran Odt] 4 mg PO Q8H PRN PRN #10 tab PRN Reason: Nausea Referrals: Jessa Scott DO [Primary Care Provider] - 5-7 Days
[2018-10-13] MEDS: Ketorolac 30 MG/ML Syringe IV (12:50)
[2018-10-13 13:05] VITALS: PULSE 84; RESP 17; TEMP 36.6; O2SAT 94
[2018-10-13 13:09] VITALS: PULSE 84; RESP 17; TEMP 36.6; O2SAT 94
== END 2018-10-13 13:35 | disposition home or self-care (01) ==
LOC: ED 11:05
PROVIDERS: Emergency Provider Emergency Medicine; Family Provider Family Medicine; PCP Family Medicine
DX: J09.X3 Influenza due to identified novel influenza A virus with gastrointestinal manifestations (principal); G47.30 Sleep apnea, unspecified; Z85.3 Personal history of malignant neoplasm of breast
CPT/HCPCS: 71046; 80048; 85025; 87804; 96361; 96374; 96375; 99284; J7030; A4216; J2405

== ENCOUNTER → 2018-11-02 08:10 | Outpatient (CLI) | payer OTHER, SELFPAY ==
[2018-10-13 10:46] VITALS: BMI 30.4
--- NOTE | 2018-11-02 08:13 | BI_ITS ---
MAMMOGRAPHY - BILATERAL SCREENING REASON FOR EXAM: Female, 48 years old. Routine annual screening examination. PERTINENT HISTORY: Personal history of breast cancer. Prior left lumpectomy and radiation treatment. TECHNIQUE: Digital bilateral breast telyl (3D mammographic acquisition) in the CC and MLO projections. 2-D mediolateral oblique (MLO) and craniocaudad (CC) views of both breasts were obtained. CAD: Full Field Digital Mammography with Computer Added Detection was performed. COMPARISON: Comparison is made with prior examination dated October 02, 2017 and December 03, 2015. FINDINGS: Breast Composition: There are scattered areas of fibroglandular density. There are no dominant masses or suspicious calcifications. Once again, postoperative changes are seen in the upper lateral portion of the left breast. Linear calcifications are seen at the operative site most likely representing suture calcifications. No focal clusters seen. No other significant abnormalities are identified. There has been no significant change since the prior study. BI/SCREENING MAMM (CAD), BILAT IMPRESSION: Stable bilateral screening mammogram. Yearly follow-up mammogram recommended. (A) ASSESSMENT CATEGORY: BIRADS Category 2: Benign. A letter regarding these results will be sent to the patient by the facility within 30 days. Approximately 10% of breast cancers are not detected by mammography. A normal mammogram should not delay biopsy of a clinically suspicious abnormality. [id number] Electronically Signed: Dung Ferreira MD at 9:59 EST , Service support ,
== END ==
PROVIDERS: Family Provider Family Medicine; PCP Family Medicine; Referring Provider Obstetrics & Gynecology; Visit Provider Obstetrics & Gynecology
DX: Z12.31 Encounter for screening mammogram for malignant neoplasm of breast (principal)
CPT/HCPCS: 77063; 77067

== ENCOUNTER → 2018-11-12 10:35 | Outpatient (CLI) | payer OTHER, SELFPAY ==
[2018-11-02 09:55] VITALS: BMI 30.4
--- NOTE | 2018-11-12 10:39 | RAD_ITS ---
STUDY: X-RAY CHEST REASON FOR EXAM: Female, 48 years old. 5 week history of cough. TECHNIQUE: PA and lateral views of the chest. COMPARISON: Comparison is made with prior study dated October 13, 2018. FINDINGS: The lungs are clear and expanded. Scattered calcified granulomas. There is no demonstrated pleural abnormality. Normal size heart. Normal mediastinum and arlet. Normal visualized pulmonary arteries. There is atherosclerotic tortuosity of the aortic arch and descending thoracic aorta. There are degenerative changes of the visualized thoracic spine. Normal visualized ribs, clavicles, and shoulders. There is no demonstrated abnormality of the visualized soft tissue structures of the upper abdomen. RAD/Chest PA and Lateral IMPRESSION: No acute abnormality is seen. Electronically Signed: Dung Ferreira, at 14:46 EST , Service support ,
== END ==
PROVIDERS: Family Provider Family Medicine; PCP Family Medicine; Referring Provider Nurse Practitioner Acute Care; Visit Provider Nurse Practitioner Acute Care
DX: J40 Bronchitis, not specified as acute or chronic (principal)
CPT/HCPCS: 71046

== ENCOUNTER 2018-12-08 08:00 | Outpatient (RCR) | payer OTHER, SELFPAY ==
[2018-11-12 11:07] VITALS: BMI 30.4
== END 2018-12-12 23:59 | disposition home or self-care (01) ==
LOC: DC 08:00
PROVIDERS: Family Provider Family Medicine; PCP Family Medicine; Visit Provider Family Medicine
DX: E11.9 Type 2 diabetes mellitus without complications (principal); Z71.3 Dietary counseling and surveillance
CPT/HCPCS: G0108

== ENCOUNTER 2019-01-04 14:00 | Outpatient (RCR) | payer OTHER, SELFPAY ==
[2018-11-12 11:07] VITALS: BMI 30.4
== END 2019-01-11 23:59 ==
LOC: DC 14:00
PROVIDERS: Family Provider Family Medicine; PCP Family Medicine; Visit Provider Family Medicine
DX: E11.9 Type 2 diabetes mellitus without complications (principal); Z71.3 Dietary counseling and surveillance
CPT/HCPCS: 97803; G0109

== ENCOUNTER 2019-01-13 16:00 | Outpatient (RCR) | payer OTHER, SELFPAY ==
[2018-11-12 11:07] VITALS: BMI 30.4
== END 2019-01-13 23:59 | disposition home or self-care (01) ==
LOC: DC 16:00
PROVIDERS: Family Provider Family Medicine; PCP Family Medicine; Visit Provider Family Medicine
DX: E11.9 Type 2 diabetes mellitus without complications (principal); Z71.3 Dietary counseling and surveillance
CPT/HCPCS: G0109

== ENCOUNTER → 2019-03-25 | Outpatient (CLI) | payer OTHER, SELFPAY ==
[2018-11-12 11:07] VITALS: BMI 30.4
--- NOTE | 2019-03-25 12:09 | US_ITS ---
STUDY: ULTRASOUND OF THE FEMALE PELVIS - COMPLETE REASON FOR EXAM: Female, 48 years old. Irregular menses LMP: 03/02/2019 TECHNIQUE: Transvaginal TECHNICAL QUALITY: Adequate. COMPARISON: 02/22/2018 report only FINDINGS: The uterus is anteverted and is in a midline position. The uterus measures 9.0 x 6.4 x 4.0 cm. Normal uterine cervix. The endometrium measures 12 mm in thickness, and is fluid distended. There is no demonstrated endometrial mass. There is no demonstrated myometrial mass. I.U.D. - The patient does not have an I.U.D. The right ovary is visualized. The right ovary measures 2.5 x 1.7 x 1.0 cm. There is no right ovarian cyst or ovarian mass. There is no visualized right adnexal mass or complex lesion. There is normal arterial and normal venous vascularity. The left ovary is visualized. The left ovary measures 2.6 x 2.8 x 2.4 cm. There is no left ovarian cyst or ovarian mass. There is no visualized left adnexal mass or complex lesion. There is normal arterial and normal venous vascularity. There is minimal fluid in the cul-de-sac. The pre void volume of the bladder was 206 ml. Polycystic ovary disease: No. US/Pelvic (Non ) IMPRESSION: Mild endometrial fluid. Normal myometrium and bilateral ovaries. Mild free pelvic fluid. Electronically Signed: Toni Cuellar MD at 21:13 EDT Tel , Service support ,
--- NOTE | 2019-03-25 12:09 | US_ITS ---
STUDY: ULTRASOUND OF THE FEMALE PELVIS - COMPLETE REASON FOR EXAM: Female, 48 years old. Irregular menses LMP: 03/02/2019 TECHNIQUE: Transvaginal TECHNICAL QUALITY: Adequate. COMPARISON: 02/22/2018 report only FINDINGS: The uterus is anteverted and is in a midline position. The uterus measures 9.0 x 6.4 x 4.0 cm. Normal uterine cervix. The endometrium measures 12 mm in thickness, and is fluid distended. There is no demonstrated endometrial mass. There is no demonstrated myometrial mass. I.U.D. - The patient does not have an I.U.D. The right ovary is visualized. The right ovary measures 2.5 x 1.7 x 1.0 cm. There is no right ovarian cyst or ovarian mass. There is no visualized right adnexal mass or complex lesion. There is normal arterial and normal venous vascularity. The left ovary is visualized. The left ovary measures 2.6 x 2.8 x 2.4 cm. There is no left ovarian cyst or ovarian mass. There is no visualized left adnexal mass or complex lesion. There is normal arterial and normal venous vascularity. There is minimal fluid in the cul-de-sac. The pre void volume of the bladder was 206 ml. Polycystic ovary disease: No. US/Transvaginal Non- IMPRESSION: Mild endometrial fluid. Normal myometrium and bilateral ovaries. Mild free pelvic fluid. Electronically Signed: Toin Cuellar MD at 21:13 EDT Tel , Service support ,
== END | disposition home or self-care (01) ==
PROVIDERS: Family Provider Family Medicine; PCP Family Medicine; Referring Provider Obstetrics & Gynecology; Visit Provider Obstetrics & Gynecology
DX: N92.6 Irregular menstruation, unspecified (principal)
CPT/HCPCS: 76830; 76856

== ENCOUNTER → 2019-03-30 | Outpatient (CLI) | payer OTHER, SELFPAY ==
--- NOTE | 2019-03-30 16:00 | EMB_PTH ---
PATIENT: CARLOS OLIVERA LOC: [facility] U#:[id number] AGE/SX: 48/F ROOM: RE03/30/[address]: ELIE Sheth : 1970 BED: DIS: 03/30/2019 SPEC #: [id number] RECD: 03/30/19 17:47 STATUS: ARIANE REDaniel #: [id number] IMER: 03/30/19 16:[address]: Lexi Ness NP DEPT: SURGICAL PATHOLOGY RECD BY: Eliel Basurto ENTERED: 03/31/19 12:30 SP TYPE: ENDOM BX/C SEE DR: Dr. Jessa Scott DO Tissues: Endometrium, NOS Procedures: Surgery Specimen Level IV HEADER OPERATION: Endometrial biopsy PRE-OP DIAGNOSIS: Abnormal uterine bleeding TISSUE SUBMITTED: Endometrial biopsy MICROSCOPIC DIAGNOSIS Endometrium, biopsy: Mildly disordered proliferative endometrium. AM:jaky 04/01/19 COMMENT Case has been reviewed in consultation with Dr. Goodwin who concurs with the above diagnosis. IDC:SJ MICROSCOPIC DESCRIPTION Slides are reviewed. GROSS DESCRIPTION Received is one container labeled with the patient's name and not further designated. The specimen consists of multiple fragments of dumont-pink hemorrhagic soft tissue that in aggregate measure 3 x 1.5 x 0.2 cm. The specimen is totally submitted in one cassette. / XENIA:jaky 03/31/19 TC:5 CPT: 91889
[2019-03-30 17:33] LABS: Estradiol 424.4 pg/mL; Follicle Stimulating Hormone 21.4 mIU/mL
== END | disposition home or self-care (01) ==
PROVIDERS: Family Provider Family Medicine; PCP Family Medicine; Referring Provider Nurse Practitioner Women's Health; Visit Provider Nurse Practitioner Women's Health
DX: N93.9 Abnormal uterine and vaginal bleeding, unspecified (principal)
CPT/HCPCS: 36415; 82670; 83001; 88305

== ENCOUNTER → 2019-11-08 | Outpatient (CLI) | payer OTHER, SELFPAY ==
--- NOTE | 2019-11-08 08:40 | BI_ITS ---
MAMMOGRAPHY - BILATERAL SCREENING REASON FOR EXAM: Female, 49 years old. Routine annual screening examination. PERTINENT HISTORY: Previous left breast cancer with lumpectomy TECHNIQUE: Digital bilateral breast romy (3D mammographic acquisition) in the CC and MLO projections. 2-D mediolateral oblique (MLO) and craniocaudad (CC) views of both breasts were obtained. CAD: Full Field Digital Mammography with Computer Added Detection was performed. COMPARISON: Previous mammogram obtained on 11/02/2018 FINDINGS: Breast Composition: Heterogeneously dense There are no dominant masses or suspicious calcifications. No other significant abnormalities are identified. The patient has some residual scar formation noted in the superior lateral aspect of the left breast due to a previous left breast lumpectomy. This was noted previously and is unchanged. The right breast is normal. BI/SCREEN MAMM (CAD) W/ROMY BILAT IMPRESSION: Stable bilateral screening mammogram. Yearly follow-up mammogram recommended. (A) ASSESSMENT CATEGORY: BIRADS Category 2: Benign. A letter regarding these results will be sent to the patient by the facility within 30 days. Approximately 10% of breast cancers are not detected by mammography. A normal mammogram should not delay biopsy of a clinically suspicious abnormality. [id number] Electronically Signed: Seth Thomas, at 16:29 EST Tel , Service support ,
== END | disposition home or self-care (01) ==
LOC: OPBI 08:40
PROVIDERS: Family Provider Family Medicine; PCP Family Medicine; Referring Provider Nurse Practitioner Women's Health; Visit Provider Nurse Practitioner Women's Health
DX: Z12.31 Encounter for screening mammogram for malignant neoplasm of breast (principal)
CPT/HCPCS: 77063; 77067

== ENCOUNTER → 2020-11-13 15:13 | Outpatient (CLI) | payer OTHER, SELFPAY ==
--- NOTE | 2020-11-13 15:17 | BI_ITS ---
MAMMOGRAPHY - BILATERAL SCREENING REASON FOR EXAM: Female, 50 years old. Routine annual screening examination. PERTINENT HISTORY: Personal history of breast cancer. Prior left lumpectomy. Grandmother with breast cancer. TECHNIQUE: Digital bilateral breast romy (3D mammographic acquisition) in the CC and MLO projections. 2-D mediolateral oblique (MLO) and craniocaudad (CC) views of both breasts were obtained. CAD: Full Field Digital Mammography with Computer Added Detection was performed. COMPARISON: Comparison is made with prior study dated 11/08/2019. FINDINGS: Breast Composition: There are scattered areas of fibroglandular density. There are no dominant masses or suspicious calcifications. The patient is status post lumpectomy in the upper outer quadrant of the left breast with resultant postoperative changes and most likely suture calcification at the operative site. No other significant abnormalities are identified. There has been no significant change since the prior study. BI/SCRN MAMM (CAD)W/ROMY BILAT IMPRESSION: Stable bilateral screening mammogram. Yearly follow-up mammogram recommended. (A) ASSESSMENT CATEGORY: BIRADS Category 2: Benign. A letter regarding these results will be sent to the patient by the facility within 30 days. Approximately 10% of breast cancers are not detected by mammography. A normal mammogram should not delay biopsy of a clinically suspicious abnormality. [id number] Electronically Signed: Dung Ferreira MD at 15:58 EST , Service support ,
[2020-11-18 15:09] LABS: HPV APTIMA, High Risk Negative (Negative)
== END ==
PROVIDERS: PCP Family Medicine; Referring Provider Obstetrics & Gynecology; Visit Provider Obstetrics & Gynecology
DX: Z12.4 Encounter for screening for malignant neoplasm of cervix (principal); Z12.31 Encounter for screening mammogram for malignant neoplasm of breast
CPT/HCPCS: 77063; 77067; 87624; 88175; G0145

== ENCOUNTER → 2021-04-26 09:48 | Outpatient (CLI) | payer OTHER, SELFPAY ==
[2020-11-13 15:53] VITALS: BMI 29.7
[2021-04-26 12:14] LABS: Absolute Lymphocyte Count 2.75 X10^3/uL (0.83-4.51); Absolute Neutrophil Count 5.8 X10^3/uL (2.0-7.7); Basophil# 0.04 X10^3/uL; Basophil% 0.4 % (0-1); Eosinophil# 0.27 X10^3/uL; Eosinophils% 2.8 % (0-5); Hematocrit 40.4 % (37-47); Hemoglobin 12.9 g/dL (12.0-15.0); Lymphocyte # 2.75 X10^3/ul (0.83-4.51); Lymphocyte % 28.7 % (19-41); Mean Corp Hgb Conc 31.9 g/dL (32-36); Mean Corpuscular Hgb 29.4 pg (27.0-32.0); Mean Platelet Vol. 10.3 fl (6.2-12.0); Monocyte# 0.64 X10^3/uL; Monocyte% 6.7 % (0-10); NRBC Flagged by Analyzer 0 % (0-5); Neutrophil # 5.83 X10^3/uL (2.7-7.7); Neutrophil % 60.9 % (47-70); Platelet Count 304 K/mm3 (150-450); RBC Distribution Width CV 13.2 % (11.6-14.6); RBC Distribution Width SD 44.5 fl (35.1-43.9); Red Blood Count 4.39 M/mm3 (4.2-5.4); White Blood Count 9.6 K/mm3 (4.4-11.0)
[2021-04-26 12:26] LABS: Microalbumin,Random Urine 18.4 mg/L (NO RANGE EST.); Microalbumin:Creatinine Ratio 10.5 mg/g CRE (<30 mg/g CRE)
[2021-04-26 12:35] LABS: ALB/GLOB Ratio 0.9 RATIO (0.9-2.4); AST(SGOT) 114 U/L (15-37); Alanine Aminotransfer ALT/SGPT 137 U/L (13-56); Albumin, Serum 3.7 g/dL (3.2-5.0); Alkaline Phosphatase 99 U/L (45-117); Anion Gap 8 (5-15); BUN 15 mg/dL (7-18); Calcium,Total 9.2 mg/dL (8.5-10.1); Chloride 101 mmol/L (98-107); Cholesterol 190 mg/dL (200); Creatinine, Serum 0.79 mg/dL (0.55-1.02); EST Glomerular Filtration Rate 81 mL/min (>60); Est Glom Filt Rate - Afr Amer 99 mL/min (>60); Globulin 4.1 g/dL (2.2-4.2); Glucose 157 mg/dL (74-106); High Density Lipoprotein 47 mg/dL; Potassium 3.3 mmol/L (3.5-5.1); Protein, Total 7.8 g/dL (6.4-8.2); Sodium Level 140 mmol/L (136-145); Triglycerides 131 mg/dL; Very Low Density Lipoprotein 26 mg/dL (5-40)
[2021-04-28 07:59] LABS: C-Peptide 3.5 ng/mL (1.1-4.4)
== END ==
PROVIDERS: PCP Family Medicine; Referring Provider Family Medicine; Visit Provider Family Medicine
DX: E11.65 Type 2 diabetes mellitus with hyperglycemia (principal); Z51.81 Encounter for therapeutic drug level monitoring
CPT/HCPCS: 36415; 80053; 80061; 82043; 82570; 83525; 84681; 85025

== ENCOUNTER 2021-06-11 05:31 | Day surgery (SDC) | payer OTHER, SELFPAY ==
[2021-06-11] VITALS (8 sets, daily range): BP systolic 87–138; BP diastolic 57–95; PULSE 73–87; RESP 16; TEMP 36.1–36.2; O2SAT 88–100; BMI 27.6
[2021-06-11] MEDS: Lactated Ringers 1,000 ML 100 ML IV (05:50)
--- NOTE | 2021-06-11 06:08 | PCM.HP.STD ---
HPI - General HPI Narrative CARLOS OLIVERA, is a 51 F who presents Today for a screening colonoscopy. She has not had a previous one.she has no personal history and no family history. She enjoys good health however she is noninsulin-dependent type II diabetic. She denies any abdominal pain. No bright red blood per rectum or melena. She has not had COVID-19 but she has been vaccinated. [facility] Medical History (Updated 06/11/21 @ 06:[address] Teto Lu MD) Cancer CPAP (continuous positive airway pressure) dependence Depression Dietary restriction History of breast cancer HTN (hypertension) Lung collapse Non-smoker Type 2 diabetes mellitus Home Medications lisinopril 20 mg-hydrochlorothiazide 25 mg tablet 1 tab PO DAILY 11/02/18 [History Last Taken Unknown] venlafaxine 37.5 mg tablet 37.5 mg PO DAILY 11/02/18 [History Last Taken Unknown] atenolol 50 mg tablet 50 mg PO DAILY 04/26/19 [History Last Taken Unknown] metformin 500 mg tablet 500 mg PO DAILY 11/13/20 [History Last Taken Unknown] potassium chloride 10 mEq tablet,extended release 10 meq PO DAILY 11/13/20 [History Last Taken Unknown] glipizide 2.5 mg tablet, extended release 24 hr 2.5 mg PO DAILY 06/07/21 [History Last Taken Unknown] Allergy/AdvReac Type Severity Reaction Status Date / Time naproxen sodium [From Aleve] Allergy Itching, Verified 06/11/21 05:51 AIRWAY SWELLS amoxicillin AdvReac NAUSEA/VOMI Verified 06/11/21 05:51 TTING hydrocodone bitartrate AdvReac NAUSEA/VOMI Verified 06/11/21 05:51 [From Vicodin] TTING Family History Grandmother Breast cancer Father Hypertension Surgical History (Updated 06/10/21 @ 12:21 by Darcie Lyn) Hx of adenoidectomy S/P lumpectomy, left breast Social History Smoking Status: Never smoker alcohol intake: never substance use type: does not use caffeine: No frequency: 1-2 times per week seatbelt use: always do you feel safe at home: Yes additional social history: [employer] Patient is a stay at home mom ROS Constitutional Constitutional: Reports systems reviewed and no addt'l complaints, except as documented Cardiovascular Cardiovascular: Denies chest pain Respiratory/Chest Respiratory/Chest: Denies shortness of breath at rest Gastrointestinal Gastrointestinal: Denies abdominal pain, change in bowel habits, hematochezia or melena Physical Exam Const alert, oriented x3 and no apparent distress General Appearance: cooperative and comfortable Eyes General Eye: normal appearance of both eyes Neck General: normal visual inspection Chest inspection of chest normal Resp Effort and Inspection: able to speak in complete sentences and symmetric chest movement Auscultation: clear to auscultation bilaterally Cardio regular rate and regular rhythm GI soft to palpation, non-tender and non-distended Extremity no calf tenderness Neuro oriented x3 Psych thought process normal Assessment & Plan Assessment/Plan (1) Screening for intestinal cancer: PLAN: The patient presents via open access today. I recommend to her screening colonoscopy with possible biopsy or polypectomy as indicated. She is aware of the technique, benefit, risk, alternatives. She has had an opportunity to ask and have questions answered. We will proceed as noted. Teto Lu M.D., F.A.C.S.
[2021-06-11 06:16] LABS: Bedside Glucose 216 mg/dL (70-110)
[2021-06-11 06:30] LABS: Internal QC Validated? YES +Cl - CLEAR BKGD; Pregnancy, Serum, hCG Quali. NEGATIVE Negative
--- NOTE | 2021-06-11 06:53 | OP.COLON_ITS ---
Patient Name: Meenu Mon Procedure Date: 06/11/2021 6:22 AM Date of : 1970 Age: 51 Procedure: Colonoscopy Indications: Screening for colorectal malignant neoplasm Providers: Teto Lu MD Medicines: Midazolam 3 mg IV, Meperidine 100 mg IV Patient Profile: Last Colonoscopy: none. The patient's first colonoscopy is today. Complications: No immediate complications. Procedure: Pre-Anesthesia Assessment: - Prior to the procedure, a History and Physical was performed, and patient medications and allergies were reviewed. The patient's tolerance of previous anesthesia was also reviewed. The risks and benefits of the procedure and the sedation options and risks were discussed with the patient. All questions were answered, and informed consent was obtained. Prior Anticoagulants: The patient has taken no previous anticoagulant or antiplatelet agents. ASA Grade Assessment: II - A patient with mild systemic disease. After reviewing the risks and benefits, the patient was deemed in satisfactory condition to undergo the procedure. After I obtained informed consent, the scope was passed under direct vision. Throughout the procedure, the patient's blood pressure, pulse, and oxygen saturations were monitored continuously. The Colonoscope was introduced through the anus and advanced to the cecum, identified by appendiceal orifice and ileocecal valve. The colonoscopy was performed without difficulty. The patient tolerated the procedure well. The quality of the bowel preparation was good. The ileocecal valve and the appendiceal orifice were photographed. Moderate Sedation: Moderate (conscious) sedation was personally administered by the endoscopist. The following parameters were monitored: oxygen saturation, heart rate, blood pressure, and response to care. Total physician intraservice time was 15 minutes. Scope In: 6:36:00 AM Scope Withdrawal Time 0 hours 6 minutes 43 seconds Scope Out: 6:48:05 AM Total Procedure Duration Time 0 hours 12 minutes 5 seconds Findings: The perianal and digital rectal examinations were normal. Hemorrhoids, small internal, were found on perianal exam. A few diverticula were found in the sigmoid colon. The exam was otherwise without abnormality. Impression: - Hemorrhoids found on perianal exam. - Diverticulosis in the sigmoid colon. - The examination was otherwise normal. - No specimens collected. Recommendation: - Discharge patient to home. - Resume previous diet. - Continue present medications. - Repeat colonoscopy in 10 years for screening purposes. Procedure Code(s): --- Professional --- 89302, Colonoscopy, flexible; diagnostic, including collection of specimen(s) by brushing or washing, when performed (separate procedure) 95053, 59, Moderate sedation services provided by the same physician or other qualified health day care aide performing the diagnostic or therapeutic service that the sedation supports, requiring the presence of an independent trained observer to assist in the monitoring of the patient's level of consciousness and physiological status; initial 15 minutes of intraservice time, patient age 5 years or older Diagnosis Code(s): --- Professional --- Z12.11, Encounter for screening for malignant neoplasm of colon K64.9, Unspecified hemorrhoids K57.30, Diverticulosis of large intestine without perforation or abscess without bleeding CPT copyright 2017 [employer]. All rights reserved. The codes documented in this report are preliminary and upon in room dining server review may be revised to meet current compliance requirements. Teto Lu MD 06/11/2021 6:53:17 AM This report has been signed electronically. Number of Addenda: 0 Note Initiated On: 06/11/2021 6:22 AM
--- NOTE | 2021-06-11 06:54 | OP.CCLET_ITS ---
06/11/2021 Jessa Scott [address] [place] [address] Re : Colonoscopy procedure for Meenu Mon Dear Dr. Scott This procedure was performed on Friday, June 11, 2021. My impressions and recommendations are as follows: Impressions : - Hemorrhoids found on perianal exam. - Diverticulosis in the sigmoid colon. - The examination was otherwise normal. - No specimens collected. Recommendations : - Discharge patient to home. - Resume previous diet. - Continue present medications. - Repeat colonoscopy in 10 years for screening purposes. My findings are described in the full procedure note, which is enclosed. If I can be of further assistance, please feel free to contact me at Doctor phone number(s): Work: . Sincerely, Teto Lu MD 06/11/2021 6:53:17 AM This report has been signed electronically.
[2021-06-11] MEDS: Ondansetron 4 MG/2 ML Vial IV (07:16)
== END 2021-06-11 08:10 | disposition home or self-care (01) ==
LOC: EN 05:35 → AC 05:36
PROVIDERS: Anesthesiology; PCP Family Medicine; Referring Provider Family Medicine; Visit Provider Surgery
PROC: 0DJD8ZZ Inspection of Lower Intestinal Tract, Via Natural or Artificial Opening Endoscopic (ICD-10-PCS; CPT 45378; principal; 2021-06-11 06:25)
DX: Z12.11 Encounter for screening for malignant neoplasm of colon (principal); K57.30 Diverticulosis of large intestine without perforation or abscess without bleeding; K64.8 Other hemorrhoids; F32.9 Major depressive disorder, single episode, unspecified; I10 Essential (primary) hypertension; E11.9 Type 2 diabetes mellitus without complications; Z79.84 Long term (current) use of oral hypoglycemic drugs; Z79.899 Other long term (current) drug therapy
CPT/HCPCS: 45378; 81025; 82962; 84703; 99152; 99153; J7120; J2405

== ENCOUNTER → 2021-09-12 | Outpatient (CLI) | payer OTHER, SELFPAY | END | disposition home or self-care (01) | PROVIDERS: PCP Family Medicine; Visit Provider Family Medicine | DX: Z20.828 Contact with and (suspected) exposure to other viral communicable diseases (principal) | CPT/HCPCS: 87635; U0003; U0005 ==

== ENCOUNTER 2021-11-19 15:03 | Outpatient (CLI) | payer OTHER, SELFPAY ==
--- NOTE | 2021-11-19 15:05 | BI_ITS ---
MAMMOGRAPHY - BILATERAL SCREENING REASON FOR EXAM: Female, 51 years old. Routine annual screening examination. PERTINENT HISTORY: Personal history of breast cancer. Prior left lumpectomy and radiation therapy. Grandmother with breast cancer. TECHNIQUE: Digital bilateral breast romy (3D mammographic acquisition) in the CC and MLO projections. 2-D mediolateral oblique (MLO) and craniocaudad (CC) views of both breasts were obtained. CAD: Full Field Digital Mammography with Computer Added Detection was performed. COMPARISON: Comparison is made with prior study dated 11/13/2020 and 11/08/2019. FINDINGS: Breast Composition: There are scattered areas of fibroglandular density. There are no dominant masses or suspicious calcifications. Once again, the patient is status post lumpectomy in the upper outer quadrant of the left breast with resultant architectural distortion and postoperative calcification most likely representing suture calcification. No other significant abnormalities are identified. There has been no significant change since the prior study. BI/SCRN MAMM (CAD)W/ROMY BILAT IMPRESSION: Stable bilateral screening mammogram. Yearly follow-up mammogram recommended. (A) ASSESSMENT CATEGORY: BIRADS Category 2: Benign. A letter regarding these results will be sent to the patient by the facility within 30 days. Approximately 10% of breast cancers are not detected by mammography. A normal mammogram should not delay biopsy of a clinically suspicious abnormality. [id number] Electronically Signed: Dung Ferreira MD at 15:46 EST ,
== END 2021-11-19 23:59 | disposition home or self-care (01) ==
LOC: OPBI 15:04
PROVIDERS: PCP Family Medicine; Visit Provider Obstetrics & Gynecology
DX: Z12.31 Encounter for screening mammogram for malignant neoplasm of breast (principal)
CPT/HCPCS: 77063; 77067

== ENCOUNTER → 2022-01-06 | Outpatient (CLI) | payer OTHER, SELFPAY | END | disposition home or self-care (01) | LOC: LABSPEC 08:24 | PROVIDERS: PCP Family Medicine; Visit Provider Obstetrics & Gynecology | DX: N89.8 Other specified noninflammatory disorders of vagina (principal) | CPT/HCPCS: 87070; 87077; 87205 ==

== ENCOUNTER → 2022-07-08 | Outpatient (CLI) | payer OTHER, SELFPAY | END | disposition home or self-care (01) | LOC: SL 10:16 | PROVIDERS: PCP Family Medicine; Visit Provider Internal Medicine Critical Care Medicine | DX: Z00.00 Encounter for general adult medical examination without abnormal findings (principal) ==

== ENCOUNTER → 2022-12-02 | Outpatient (CLI) | payer OTHER, SELFPAY ==
--- NOTE | 2022-12-02 10:18 | BI_ITS ---
MAMMOGRAPHY - BILATERAL SCREENING REASON FOR EXAM: Female, 52 years old. Routine annual screening examination. PERTINENT HISTORY: Personal history of breast cancer. Prior left lumpectomy with radiation and chemotherapy. Grandmother with breast cancer. TECHNIQUE: Digital bilateral breast romy (3D mammographic acquisition) in the CC and MLO projections. 2-D mediolateral oblique (MLO) and craniocaudad (CC) views of both breasts were obtained. CAD: Full Field Digital Mammography with Computer Added Detection was performed. COMPARISON: Comparison is made with prior study dated November 19, 2021 and November 13, 2020. FINDINGS: Breast Composition: There are scattered areas of fibroglandular density. There are no dominant masses or suspicious calcifications. Once again, the patient is status post lumpectomy in the deep upper lateral aspect of the left breast with resultant postoperative scarring and dystrophic calcification most likely secondary to suture calcification at the operative site. Stable benign-appearing bilateral axillary lymph nodes. No other significant abnormalities are identified. There has been no significant change since the prior study. BI/SCRN MAMM (CAD)W/ROMY BILAT IMPRESSION: Stable bilateral screening mammogram. Yearly follow-up mammogram recommended. (A) ASSESSMENT CATEGORY: BIRADS Category 2: Benign. A letter regarding these results will be sent to the patient by the facility within 30 days. Approximately 10% of breast cancers are not detected by mammography. A normal mammogram should not delay biopsy of a clinically suspicious abnormality. [id number] Electronically Signed: Dung Ferreira MD at 12:39 EDT ,
== END | disposition home or self-care (01) ==
LOC: OPBI 10:16
PROVIDERS: PCP Family Medicine; Visit Provider Obstetrics & Gynecology
DX: Z12.31 Encounter for screening mammogram for malignant neoplasm of breast (principal)
CPT/HCPCS: 77063; 77067

== ENCOUNTER → 2023-03-18 | Outpatient (CLI) | payer OTHER, SELFPAY ==
[2023-03-18 13:14] LABS: Absolute Lymphocyte Count 3.53 X10^3/uL (0.83-4.51); Absolute Neutrophil Count 6.9 X10^3/uL (2.0-7.7); Basophil# 0.04 X10^3/uL; Basophil% 0.3 % (0-1); Eosinophils% 2.6 % (0-5); Hematocrit 38.3 % (37-47); Hemoglobin 12.4 g/dL (12.0-15.0); Lymphocyte # 3.53 X10^3/ul (0.83-4.51); Lymphocyte % 30.7 % (19-41); Mean Corp Hgb Conc 32.4 g/dL (32-36); Mean Corpuscular Hgb 29.4 pg (27.0-32.0); Mean Corpuscular Volume 90.8 fL (81-99); Mean Platelet Vol. 9.9 fl (6.2-12.0); Monocyte# 0.69 X10^3/uL; NRBC Flagged by Analyzer 0 % (0-5); Platelet Count 322 K/mm3 (150-450); RBC Distribution Width CV 14.1 % (11.6-14.6); RBC Distribution Width SD 46.4 fl (35.1-43.9); Red Blood Count 4.22 M/mm3 (4.2-5.4); White Blood Count 11.5 K/mm3 (4.4-11.0)
[2023-03-18 13:15] LABS: Erythrocyte Sedimentation Rate 11 mm/hr (0-30)
[2023-03-18 13:34] LABS: ALB/GLOB Ratio 0.9 RATIO (0.9-2.4); AST(SGOT) 18 U/L (15-37); Alanine Aminotransfer ALT/SGPT 34 U/L (13-56); Albumin, Serum 3.7 g/dL (3.2-5.0); Alkaline Phosphatase 113 U/L (45-117); Anion Gap 6 (5-15); BUN 18 mg/dL (7-18); BUN/Creat Ratio 23.8 RATIO (10-20); Calcium,Total 9.3 mg/dL (8.5-10.1); Chloride 105 mmol/L (98-107); Cholesterol 172 mg/dL (200); Creatinine, Serum 0.76 mg/dL (0.55-1.02); EST Glomerular Filtration Rate 85 mL/min (>60); Est Glom Filt Rate - Afr Amer 103 mL/min (>60); Glucose 83 mg/dL (74-106); High Density Lipoprotein 49 mg/dL; Potassium 3.2 mmol/L (3.5-5.1); Protein, Total 7.7 g/dL (6.4-8.2); Rheumatoid Factor < 10.0 IU/mL (<15); Sodium Level 141 mmol/L (136-145); Triglycerides 141 mg/dL; Very Low Density Lipoprotein 28 mg/dL (5-40)
[2023-03-18 13:39] LABS: Microalbumin,Random Urine 14.3 mg/L (NO RANGE EST.); Microalbumin:Creatinine Ratio 7.3 mg/g CRE (<30 mg/g CRE)
[2023-03-19 15:08] LABS: ANTINUCLEAR ANTIBODIES DIRECT Negative (Negative)
== END | disposition home or self-care (01) ==
LOC: BFHLAB 09:35
PROVIDERS: PCP Family Medicine; Referring Provider Family Medicine; Visit Provider Family Medicine
DX: M25.50 Pain in unspecified joint (principal); E11.9 Type 2 diabetes mellitus without complications; E78.00 Pure hypercholesterolemia, unspecified; Z51.81 Encounter for therapeutic drug level monitoring
CPT/HCPCS: 36415; 80053; 80061; 82043; 82570; 85025; 85652; 86038; 86140; 86225; 86235; 86431

== ENCOUNTER → 2023-12-18 | Outpatient (CLI) | payer OTHER, SELFPAY ==
--- NOTE | 2023-12-18 08:38 | BI_ITS ---
MAMMOGRAPHY - BILATERAL SCREENING REASON FOR EXAM: Female, 53 years old. Routine annual screening examination. PERTINENT HISTORY: Personal history of breast cancer. Prior left lumpectomy with radiation. Grandmother with breast cancer. TECHNIQUE: Digital bilateral breast romy (3D mammographic acquisition) in the CC and MLO projections. 2-D mediolateral oblique (MLO) and craniocaudad (CC) views of both breasts were obtained. CAD: Full Field Digital Mammography with Computer Added Detection was performed. COMPARISON: Comparison is made with prior study dated December 02, 2022 and November 19, 2021. FINDINGS: Breast Composition: There are scattered areas of fibroglandular density. There are no dominant masses or suspicious calcifications. The patient is status post lumpectomy in the deep slightly upper lateral aspect of the left breast with postoperative dystrophic calcification and suture calcification. This is unchanged. Stable bilateral fat containing axillary lymph nodes. No other significant abnormalities are identified. There has been no significant change since the prior study. BI/SCRN MAMM (CAD)W/ROMY BILAT IMPRESSION: Stable bilateral screening mammogram. Yearly follow-up mammogram recommended. (A) ASSESSMENT CATEGORY: BIRADS Category 2: Benign. A letter regarding these results will be sent to the patient by the facility within 30 days. Approximately 10% of breast cancers are not detected by mammography. A normal mammogram should not delay biopsy of a clinically suspicious abnormality. [id number] Electronically Signed: Dung Ferreira MD at 9:20 EDT ,
== END | disposition home or self-care (01) ==
LOC: OPBI 08:37
PROVIDERS: PCP Family Medicine; Referring Provider Obstetrics & Gynecology; Visit Provider Obstetrics & Gynecology
DX: Z12.31 Encounter for screening mammogram for malignant neoplasm of breast (principal); Z85.3 Personal history of malignant neoplasm of breast
CPT/HCPCS: 77063; 77067

== ENCOUNTER → 2023-12-26 | Outpatient (CLI) | payer OTHER, SELFPAY ==
--- NOTE | 2023-12-26 10:06 | US_ITS ---
STUDY: ULTRASOUND OF THE FEMALE PELVIS - COMPLETE REASON FOR EXAM: Female, 53 years old. Postmenopausal bleeding LMP: Menopause TECHNIQUE: Transabdominal and Transvaginal TECHNICAL QUALITY: Adequate. COMPARISON: 03/25/2019 FINDINGS: The uterus is retroflexed and is in a midline position. The uterus measures 8.0 x 6.7 x 4.7 cm. Normal uterine cervix. The endometrium measures 8 mm in thickness, and is hyperechoic. There is no demonstrated endometrial mass. There is no demonstrated myometrial mass. I.U.D. - The patient does not have an I.U.D. The right ovary is visualized. The right ovary measures 2.5 x 2.3 x 1.9 cm. There is no right ovarian cyst or ovarian mass. There is no visualized right adnexal mass or complex lesion. There is normal arterial and normal venous vascularity. The left ovary is visualized. The left ovary measures 2.2 x 1.9 x 2.3 cm. There is no left ovarian cyst or ovarian mass. There is no visualized left adnexal mass or complex lesion. There is normal arterial and normal venous vascularity. There is no fluid in the cul-de-sac. The pre void volume of the bladder was 373 ml. The post void volume of the bladder was ml. Polycystic ovary disease: No. US/Pelvic (Non ) IMPRESSION: Normal female pelvis. Electronically Signed: Mohan Courtney MD at 13:34 EDT ,
== END | disposition home or self-care (01) ==
PROVIDERS: PCP Family Medicine; Referring Provider Obstetrics & Gynecology; Visit Provider Obstetrics & Gynecology
DX: N95.0 Postmenopausal bleeding (principal)
CPT/HCPCS: 76830; 76856

== ENCOUNTER → 2024-01-22 | Outpatient (CLI) | payer OTHER, SELFPAY ==
--- NOTE | 2024-01-22 | EMB_PTH ---
PATIENT: CARLOS OLIVERA LOC: BAL U#:[id number] AGE/SX: 53/F ROOM: RE01/22/[address]: Dr. Rahel Kolb DO : 1970 BED: DIS: 01/22/2024 SPEC #: [id number] RECD: 01/22/24 16:04 STATUS: ARIANE MENDOZA #: [id number] IMER: 01/22/24 00:[address]: Rahel Kolb DEPT: SURGICAL PATHOLOGY RECD BY: Sammy Farrell ENTERED: 01/25/24 07:29 SP TYPE: ENDOM BX/C SEE DR: Dr. Jessa Scott DO Tissues: Endometrium, NOS Procedures: Surgery Specimen Level IV HEADER OPERATION: Endometrial biopsy PRE-OP DIAGNOSIS: Post-menopausal bleeding TISSUE SUBMITTED: Endometrial lining MICROSCOPIC DIAGNOSIS Endometrial biopsy: Inactive endometrium. See comment. XENIA/ 01/26/24 COMMENT A benign mesothelial cyst with reactive changes is also noted. Immunohistochemistry ([id number]) supports the diagnosis of mesothelial nature of cyst lining. This case is discussed with Dr. Rahel Kolb on 01/27/24. Correlation with clinical findings and appropriate follow up are necessary. Case has been reviewed in consultation with Dr. Henriquez who concurs with the above diagnosis. IDC:AM MICROSCOPIC DESCRIPTION Slides are reviewed. GROSS DESCRIPTION Received is one container labeled with the patient's name and not further designated. The specimen consists of multiple irregular fragments of light dumont soft tissue that in aggregate measure 2.5 x 1.0 x <0.1 cm. The specimen is totally submitted in one cassette. AM/ 01/25/2024 TC:5 CPT:97550
--- NOTE | 2024-01-22 | IMM_PTH ---
PATIENT: CARLOS OLIVERA LOC: BAL U#:[id number] AGE/SX: 53/F ROOM: RE01/22/[address]: Dr. Rahel Kolb DO : 1970 BED: DIS: 01/22/2024 SPEC #: [id number] RECD: 01/27/24 09:21 STATUS: ARIANE REQ #: [id number] IMER: 01/22/24 00:[address]: Rahel Kolb DEPT: IMMUNOHISTOCHEMISTRY RECD BY: Jose Julian ENTERED: 01/27/24 09:22 SP TYPE: IMMUNO OTHR DR: Dr. Jessa Scott DO Tissues: Endometrium, NOS Procedures: Luis Ret (add) CEA (add) CK20 (add) CK5-6 (add) CK7 (add) CK8 (add) KI-67 (add) P53 (add) OR (add) Vimentin (add) Pankeratin (add) P40 (add) ER (initial) PHYSICIAN & INSTITUTION [address] [address] SPECIMEN INFORMATION: Tissue Source: Endometrial lining Clinical Info: Post-menopausal bleeding Specimen Number: [id number] CPT code: 70651,56836w10 METHODOLOGY: Deparaffinized sections of prefer/formalin-fixed tissue or PAP/DQ stained slides are incubated with monoclonal/polyclonal antibodies/oligonucleotide probes. Localization is made via biotin free immunoperoxidase method. Appropriate controls are performed and reacted as expected. Results on target cell population are indicated in the following table: RESULTS: ANTIBODY / CLONE RESULT ER (6F11) negative OR (1E2) negative AE1-3 (AE1/AE3/PCK26) positive CK7 (OV-TL12/30) positive CK8 (10opdmK76) positive CK20 (KS20.8) negative Vimentin (V9) positive, weak CALRET (polyclonal) positive CK5-6 (D5 & 1684) positive P40 (BC28) negative CEA (11-7/TF-3HB-1) negative P53 (DO-7) negative (null pattern) Ki-67 (30-9) positive, very low These tests were developed and their performance characteristics determined by [facility]. They may not have been cleared or approved by the U.S. Food and Drug Administration. The FDA has determined that such clearance or approval is not necessary. The above immunohistochemical/dualISH markers are ordered and reviewed by the Pathologist. INTERPRETATION: Endometrial biopsy: Consistent with benign mesothelial cyst. SJ/mr 01/26/24 COMMENT: Case has been reviewed in consultation with Dr. Henriquez who concurs with the above diagnosis. IDC:AM
== END | disposition home or self-care (01) ==
PROVIDERS: PCP Family Medicine; Referring Provider Obstetrics & Gynecology; Visit Provider Obstetrics & Gynecology
DX: N95.0 Postmenopausal bleeding (principal)
CPT/HCPCS: 88305; 88341; 88342

== ENCOUNTER 2024-03-22 08:52 | Day surgery (SDC) | payer OTHER, SELFPAY ==
[2024-03-16 15:51] LABS: Hematocrit 39.4 % (37-47); Hemoglobin 12.4 g/dL (12.0-15.0); Mean Corp Hgb Conc 31.5 g/dL (32-36); Mean Corpuscular Hgb 28.6 pg (27.0-32.0); Mean Platelet Vol. 9.7 fl (6.2-12.0); Platelet Count 325 K/mm3 (150-450); RBC Distribution Width CV 13.7 % (11.6-14.6); RBC Distribution Width SD 45.6 fl (35.1-43.9); Red Blood Count 4.33 M/mm3 (4.2-5.4); White Blood Count 12.1 K/mm3 (4.4-11.0)
--- NOTE | 2024-03-22 09:09 | PCM.PRE.AN2 ---
ASA Classification* ASA Classification ASA Classification: 2 Assessment & Plan Anesthesia* Anesthesia Assessment Anesthesia Assessment: Discussed sedation and/or anesthesia options, risks, benefits, and alternatives with patient/parents/legal guardian/POA. Questions invited. The patient/parents/legal guardian/POA seems to understand and agrees to proceed with anesthesia plan. Reviewed the physical assessment, medical history, allergy history and patient home medications list prior to surgery/procedure/anesthetic and documented any changes. Performed airway and anesthesia risk assessments. Anesthesia Type Anesthesia Type: MAC (see written pre anesthesia record for full assessment) Anesthesia Focused Assessment* Airway Assessment Mouth opens: >3 cm Mallampati Score: II Focused Labs Anesthesia Preop lab: CBC WBC 12.1 K/mm3 (4.4-11.0) H 03/16/24 15:10 RBC 4.33 M/mm3 (4.2-5.4) 03/16/24 15:10 Hgb 12.4 g/dL (12.0-15.0) 03/16/24 15:10 Hct 39.4 % (37-47) 03/16/24 15:10 Plt Count 325 K/mm3 (150-450) 03/16/24 15:10 CHEMISTRY Potassium 3.2 mmol/L (3.5-5.1) L 03/18/23 09:36 Sodium 141 mmol/L (136-145) 03/18/23 09:36 BUN 18 mg/dL (7-18) 03/18/23 09:36 Creatinine 0.76 mg/dL (0.55-1.02) 03/18/23 09:36 Glucose 83 mg/dL (74-106) 03/18/23 09:36 POC Glucose 216 mg/dL (70-110) H 06/11/21 06:05 COAG PT 13.1 SECONDS (11.7-14.9) 01/16/16 06:00 Urine Test Negative Negative 12/03/15 10:45 Pre-Assessment Diagnosis/Proposed Procedure Planned Operative Procedure(s): HYSTEROSCOPY D&C Anesthesia History Anesthesia History - media reconciliation specialist: Anesthesia History - media reconciliation specialist Hx Hospitalization No 03/14/24 11:07 Any Problems With Anesthesia Yes: N,V 03/14/24 11:07 Cholinesterase deficiency No 03/14/24 11:07 You/Your Family Experience No 03/14/24 11:07 fever (hyperthermia) with Relationship Recent Exposure to Contagious No 06/11/21 06:15 Disease Does patient have nerve No 03/14/24 11:07 stimulator Patient instructed to have device shut off --Does patient have Pacemaker or ICD? When Was Last Pacemaker Check QUESTION #4 FULL TEXT: You/Your Family Experience fever (hyperthermia) with Anesthesia Last Oral Intake Last Oral intake: Last Oral Intake NPO since Meds taken in AM with sips of water? Meds patient instructed to take am of surgery PONV PONV - media reconciliation specialist: PONV - media reconciliation specialist Female Yes 03/14/24 11:07 HX of Motion Sickness Yes 03/14/24 11:07 HX of N/V After Surgery Yes 03/14/24 11:07 Non-Smoker Yes 03/14/24 11:07 Duration of Surgery greater No 03/14/24 11:07 than 60 minutes Number of Risk Factors 4 03/14/24 11:07 PONV Score Severe Risk 03/14/24 11:07 Height & Weight Height & Weight: Anesthesia: Height & Weight Height 5 ft 4 in 02/29/24 08:08 Respiratory Assessment Respiratory Assessment - media reconciliation specialist: Respiratory Tract Infection Hx - media reconciliation specialist Hx Respiratory Tract Infection No 03/14/24 11:07 STOP Sleep Apnea STOP Sleep Apnea - media reconciliation specialist: STOP Sleep Apnea - media reconciliation specialist Hx Hypertension Yes: CONTROLLED WITH MED. 03/14/24 11:07 JUST STARTED 03/10/24 ON COREG Hx Sleep Apnea Yes 03/14/24 11:07 CPAP Yes 03/14/24 11:07 BIPAP No 03/14/24 11:07 Do you snore loudly (louder than talking or can be heard Do you often feel tired/ fatigued/ sleepy during daytime? Has anyone observed you stop breathing during sleep? STOP Results Positive 03/14/24 11:07 QUESTION #5 FULL TEXT : Do you snore loudly (louder than talking or can be heard through closed doors)? Tobacco Use History Tobacco Use History - media reconciliation specialist: Tobacco Use History - media reconciliation specialist Tobacco Use Smoking Status Never smoker 03/14/24 11:07 Hx Tobacco Use No 03/14/24 11:07 Years Smoking Packs Smoked per Day Smoking Cessation Date was within the last 15 years Hx Smoking Cessation Date Hx Smoking Cessation Counseling Hematologic Medial History Hematologic Hx - media reconciliation specialist: Hematologic Medical Hx - dietitian therapeutic Hx of Blood Transfusion No 03/14/24 11:07 Hx of Transfusion in last 3 No 03/14/24 11:07 Months Date of Last Transfusion (if within last 3 months) Ever experience any problems No 03/14/24 11:07 with transfusion(s)? Specify any problems Hx of Preganancy in last 3 No 03/14/24 11:07 Months Nurse Filling Out Transfusion DSCHRIBER 03/14/24 11:07 & Questions: Date: 03/14/24 03/14/24 11:07 Time: 11:09 03/14/24 11:07 Patient unable to answer at this time (ie. confused, unrespo /Reproduction History /Reproductive History - media reconciliation specialist: /Reproductive Hx- media reconciliation specialist Hx Now No 03/14/24 11:07 Gestational Age (in weeks): EDC: Hx Hx Para Hx Section SAB No 03/14/24 11:07 Active Medications Active Medications: Current Medications Generic Name Dose Route Start Last Admin Trade Name Freq PRN Reason Stop Dose Admin Lactated Ringer's 1,000 mls @ 15 mls/hr 03/22/24 09:00 IV .Q48H BARRIE PFSH Medical History Post-menopausal Wears glasses Anxiety Asthma Cancer Depression Dietary restriction Non-smoker Type 2 diabetes mellitus CPAP (continuous positive airway pressure) dependence HTN (hypertension) History of breast cancer Lung collapse Home Medications ?Medication ?Instructions ?Recorded ?Last Taken ?Type potassium chloride 10 mEq 10 meq PO DAILY 11/13/20 Unknown History tablet,extended release albuterol sulfate 90 mcg/actuation 2 puff inhalation Q4H PRN 09/19/22 Unknown Rx aerosol inhaler (Ventolin HFA) shortness of breath or wheezing #18 grams venlafaxine 37.5 mg tablet 37.5 mg PO DAILY #90 tabs 12/02/22 Unknown Rx dulaglutide 0.75 mg/0.5 mL 1.5 mg subcut NATH Type 2 diabetes 12/18/23 03/13/24 History subcutaneous pen injector (Trulicity) carvedilol 6.25 mg tablet 12.5 mg PO DAILY 03/01/24 Unknown History carvedilol 6.25 mg tablet 6.25 mg PO QHS 03/14/24 Unknown History glipizide 5 mg tablet 5 mg PO DAILY 03/14/24 Unknown History Allergy/AdvReac Type Severity Reaction Status Date / Time naproxen sodium (From Aleve) Allergy Itching, Verified 03/14/24 11:02 AIRWAY SWELLS amoxicillin AdvReac NAUSEA/VOMI Verified 03/14/24 11:02 TTING hydrocodone bitartrate (From AdvReac NAUSEA/VOMI Verified 03/14/24 11:02 Vicodin) TTING Family History Grandmother Breast cancer Father Hypertension Prostate cancer Surgical History Hx of colonoscopy Hx of adenoidectomy S/P lumpectomy, left breast Social History Smoking Status: Never smoker alcohol intake: never substance use type: does not use caffeine: No frequency: 1-2 times per week seatbelt use: always do you feel safe at home: Yes additional social history: Tulio Salvador and Andrez Patient works from home Review of Systems (Anesthesia) ROS Narrative System reviewed and no additional complaints, except as documented.
[2024-03-22 09:19] VITALS: BP 148/91; PULSE 78; RESP 16; TEMP 36.7; O2SAT 100; BMI 27.7
[2024-03-22] MEDS: Lactated Ringers 1,000 ML 15 ML IV (09:21)
--- NOTE | 2024-03-22 09:27 | HP.PCM_ITS ---
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 Is patient in pain?: No Allergies naproxen sodium (From Aleve) Allergy (Verified 02/29/24 08:06) Itching, AIRWAY SWELLSamoxicillin Adverse Reaction (Verified 02/29/24 08:06) NAUSEA/VOMITTINGhydrocodone bitartrate (From Vicodin) Adverse Reaction (Verified 02/29/24 08:06) NAUSEA/VOMITTING Medications ?Medication ?Instructions ?Recorded ?Confirmed ?Type lisinopril 20 1 tab PO DAILY 11/02/18 02/29/24 History mg-hydrochlorothiazide 25 mg tablet potassium chloride 10 mEq 10 meq PO DAILY 11/13/20 02/29/24 History tablet,extended release albuterol sulfate 90 mcg/actuation 2 puff inhalation Q4H PRN 09/19/22 02/29/24 Rx aerosol inhaler (Ventolin HFA) shortness of breath or wheezing #18 grams venlafaxine 37.5 mg tablet 37.5 mg PO DAILY #90 tabs 12/02/22 02/29/24 Rx dulaglutide 0.75 mg/0.5 mL 3 mg subcut QWEEK Type 2 diabetes 12/18/23 02/29/24 History subcutaneous pen injector (Trulicity) Post menopausal: No Patient : No PFSH Medical History Cancer Depression Dietary restriction Non-smoker Type 2 diabetes mellitus CPAP (continuous positive airway pressure) dependence HTN (hypertension) History of breast cancer Lung collapse Surgical History Hx of adenoidectomy S/P lumpectomy, left breast Family History Grandmother Breast cancerFather Hypertension Prostate cancer Social History Smoking Status: Never smoker alcohol intake: never substance use type: does not use caffeine: No frequency: 1-2 times per week seatbelt use: always do you feel safe at home: Yes additional social history: Lenny- Made[employer] and Young Patient works from home HPI Surgical consultation Details: CARLOS OLIVERA is a 53 year old who presents for pre-op exam. She will be scheduled soon for a hysteroscopy dilaiton and curettage. 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 She has not experienced any further bleeding but has a personal history of breast cancer. History 2 Elective abortions Hx Para 2 Spontaneous abortions Hx # Term Pregnancies Ectopic pregnancies Hx # Pregnancies Multiple births # of living children Past Pregnancies Del. Date Name GA/Weeks Outcome Route Bth Weight Gen Labor Lgth Anesthesia Del Locatn Provider FOB Unknown 1996 Gerri Unknown 1999 Tu ROS Const ROS Unobtainable: All systems reviewed & are unremarkable except as noted in H Resp Resp: Reports system reviewed and no additional complaints, except as documented; Denies cough GI GI: Reports as per HPI Psych Psych: Reports system reviewed and no additional complaints, except as documented Exam Const General: cooperative, healthy appearing, comfortable and no acute distress Resp Effort & Inspection: normal respiratory effort Skin General: no rashes or lesions noted Psych Appearance: grossly normal Speech and Movement: speech and movement normal Coding Level of Care Code Off vis,est,level 4 Diagnoses Thickened endometrium R93.89 Postmenopausal bleeding N95.0 History of breast cancer Z85.3 Assessment and Plan Assessment and Plan (1) Thickened endometrium: Status: Acute (2) Postmenopausal bleeding: Status: Acute Comment: us and plan emb or d and c depending on results (3) History of breast cancer: Status: Acute Comment: 2016- sees Dr Balderrama, C[place]ul, took tamoxifen in the past Plan After discussing the patient's diagnosis and treatment plan options, patient wishes to proceed with surgical management. I have discussed with the patient the risks, benefits, and alternatives of the procedure which include but are not limited to risks of anesthesia, bleeding, infection, possible damage to bowel, bladder, or surrounding vasculature which could lead to additional surgery to evaluate any complications. Patient agrees to procedure and wishes to proceed. ACOG/uptodate references given for additional information regarding procedure. plan is for hysteroscopy d&C
[2024-03-22 10:16] LABS: Bedside Glucose 143 mg/dL (74-106)
--- NOTE | 2024-03-22 10:30 | EMB_PTH ---
PATIENT: CARLOS OLIVERA [place] [facility] [place] U[place][id number] AGE/SX: 53/F ROOM: RE03/22/[address]: Dr. Rahel Kolb DO : 1970 BED: DIS: 03/22/2024 SPEC #: [id number] RECD: 03/22/24 12:40 STATUS: ARIANE MENDOZA #: [id number] IMER: 03/22/24 10:[address]: Rahel Kolb DEPT: SURGICAL PATHOLOGY RECD BY: Pallavi Benson ENTERED: 03/22/24 13:59 SP TYPE: ENDOM BX/C JUANHR DR: Dr. Jessa Scott DO Tissues: Endometrium, NOS Procedures: Surgery Specimen Level IV HEADER OPERATION: Hysteroscopy, D&C PRE-OP DIAGNOSIS: Thickened endometrium, postmenopausal bleeding, history of breast cancer TISSUE SUBMITTED: Endometrial currettings MICROSCOPIC DIAGNOSIS Endometrial curettings: Fragments of inactive endometrium with focal cystic changes. XENIA/ 03/23/2024 MICROSCOPIC DESCRIPTION Slides are reviewed. GROSS DESCRIPTION Received in fixative is one container labeled with the patient's name and designated Endometrial curettings. The specimen consists of multiple irregular fragments of dumont-pink soft tissue that in aggregate measure 1.0 x 0.1 x 0.1 cm. The specimen is totally submitted in one cassette. / 03/22/2024 TC:5 CPT:36837
[2024-03-22] MEDS: Lidocaine 1% (20 ml mdv) 20 ML Vial (10:48)
--- NOTE | 2024-03-22 10:50 | OP.PCM_ITS ---
Problems Associated Problem List Diagnoses (1) Thickened endometrium: (2) Postmenopausal bleeding: Report of Operation Date of Procedure: 03/22/24 Pre-Operative Diagnosis: thickened endometrium, postmenopausal bleeding Post-Operative Diagnosis: thickened endometrium, postmenopausal bleeding Surgery/Procedure Performed:: hysteroscopy dilation and curettage Description of Surgical Findings:: thin endometrium Surgeon: Rahel Kolb credit administration specialist: None Type of Anesthesia: MAC and Topical Anesth Anesthesiologist: Mian Schmidt Specimen's removed: endometrial curetting's Drains: none Estimated Blood Loss (mL): 5cc Description of Procedure: Patient was prepped and draped in a normal sterile fashion under MAC anesthesia. A weighted speculum was placed in the vagina and the anterior lip of the cervix was grasped with a single-tooth tenaculum. A paracervical block was placed with 1% lidocaine. Cervix was progressively dilated to allow passage of a 5 mm hysteroscope. The lining was fully visualized and noted to be fairly atrophic . Uterine sounded to 7 cm. Curettage was performed and scant tissue was sent to pathology. All instruments were removed from the vagina and excellent hemostasis was noted. Patient was awoken and taken to recovery in stable condition. Complications none Admit VTE Documentation VTE Present on Admission: No VTE Mechan Device Prophylaxis: SCD's VTE Pharm Prophylaxis ordered?: No Multi Select Codes Urinary/Genital Urinary/Genital CPT Codes: 02015 Hysteroscopy,EMC, Polypectomy
--- NOTE | 2024-03-22 10:52 | DCINST_ITS ---
Discharge Instructions Diet Discharge Diet: No restrictions Activity Discharge Activity: Return to Normal Activity, May Shower and May Take a Tub Bath (after 1 week) May resume sexual activity in: 1-2 weeks Weight Bearing Status: Weight bearing as tolerated Lifting Restrictions: none Dressing / Incision Call your doctor if you observe: Fever of 101 or Higher, Using more than 1 pad per hour, Shortness of breath and Uncontrolled pain Follow Up Care Please Follow Up With: Rahel Kolb DO When: Call [phone] to schedule appointment. Test Results: Test results from this visit will be discussed in further detail at your follow- up appointment, if applicable. Discharge Plan Admission Primary Reason for Your Visit: dilation and curettage Attending Provider: Rahel Kolb Primary Care Provider: Jessa Scott Instructions Print Language: Citizen Of [place] Discharge Orders/Prescriptions Prescriptions: New ibuprofen 800 mg tablet 800 mg PO Q8H PRN (Reason: pain) Qty: 20 0RF Continued potassium chloride 10 mEq tablet extended release 10 meq PO DAILY venlafaxine 37.5 mg tablet 37.5 mg PO DAILY Qty: 90 12RF Trulicity 0.75 mg/0.5 mL pen injector 1.5 mg subcut NATH carvedilol 6.25 mg tablet 12.5 mg PO DAILY Rx Instructions: must administer with a meal/food glipizide 5 mg tablet 5 mg PO DAILY carvedilol 6.25 mg tablet 6.25 mg PO QHS Rx Instructions: must administer with a meal/food albuterol sulfate [Ventolin HFA] 90 mcg/actuation HFA aerosol inhaler 2 puff inhalation Q4H PRN (Reason: shortness of breath or wheezing) Qty: 18 6RF Referrals / Follow Up: Jessa Scott DO [Primary Care Provider] - Disposition Disposition (needs filled in before D/C Order can be placed): Home, Self Care
[2024-03-22 10:55] VITALS: BP 131/78; BP 148/91; PULSE 75; RESP 16; TEMP 36.3; O2SAT 94
--- NOTE | 2024-03-22 10:58 | PCM.POST.ANE ---
Anesthesia: Postop Eval I Current Vital Signs Temperature: 97.3 F Pulse Rate: 77 Blood Pressure: 131/78 Respiratory Rate: 16 Pulse Ox: 95 Oxygen Delivery Method: Room Air Assessment Airway patent: Yes Spontaneous unlabored respirations: Yes Mental status: Awake and Calm nausea: No Vomiting: No Anesthesia Complication: No Fluid Hydration Crystalloid volume administer (ml): 400 Total IV fluid infused: 400 Progress Note Anesthesia document: Postop Eval 1 completed: Yes
[2024-03-22 10:59] VITALS: BP 131/78; PULSE 77; RESP 16; TEMP 36.3; O2SAT 95
[2024-03-22 11:00] VITALS: BP 131/92; BP 148/91; PULSE 72; RESP 16; O2SAT 95
[2024-03-22 11:05] VITALS: BP 147/85; BP 148/91; PULSE 72; RESP 18; TEMP 36.6; O2SAT 97
[2024-03-22 11:06] VITALS: BP 148/91
--- NOTE | 2024-03-22 11:49 | POSTOPAN2_ITS ---
Anesthesia Postop Eval I Sum Postop Eval Completion status Anesthesia document: Postop Eval 1 completed: Yes Anesthesia Postop Eval I Summary Anesthesia Postop Eval I Summary: Anesthesia Postop Eval I: Assessment Summary Airway patent Yes 03/22/24 10:59 DELI [email or web address] Spontaneous unlabored Yes 03/22/24 10:59 DELI [email or web address] respirations Mental status Awake,Calm 03/22/24 10:59 DELI [email or web address] nausea No 03/22/24 10:59 DELI [email or web address].SCHR Vomiting No 03/22/24 10:59 [facility]est[facility] Postop Eval I: Fluid Summary Crystalloid volume administer 400 03/22/24 10:59 DELI [email or web address].SCHR (ml) Colloids volume administered ( ml) Blood Product volume administered (ml) Total IV fluid infused 400 03/22/24 10:59 DELI [email or web address].SCHR Anesthesia Postop Eval I: Summary Notes Anesthesia Complication No 03/22/24 10:59 [facility] An[facility]hesia Complication Comment: Post-operative progress note Anesthesia: Postop Eval II Evaluation Mental status: Awake Pain Level: 0 nausea: No Vomiting: No
--- NOTE | 2024-03-22 11:49 | PCM.POSTANE2 ---
Anesthesia Postop Eval I Sum Postop Eval Completion status Anesthesia document: Postop Eval 1 completed: Yes Anesthesia Postop Eval I Summary Anesthesia Postop Eval I Summary: Anesthesia Postop Eval I: Assessment Summary Airway patent Yes 03/22/24 10:59 AUDIO/VISUAL MANAGER.[email or web address] Spontaneous unlabored Yes 03/22/24 10:59 AUDIO/VISUAL MANAGER.SCHR respirations Mental status Awake,Calm 03/22/24 10:59 AUDIO/VISUAL MANAGER.SCHR nausea No 03/22/24 10:59 AUDIO/VISUAL MANAGER.SCHR Vomiting No 03/22/24 10:59 [facility]UD[facility]UAL [facility] Anesthesia Postop Eval I: Fluid Summary Crystalloid volume administer 400 03/22/24 10:59 AUDIO/VISUAL MANAGER.SCHR (ml) Colloids volume administered ( ml) Blood Product volume administered (ml) Total IV fluid infused 400 03/22/24 10:59 AUDIO/VISUAL MANAGER.SCHR Anesthesia Postop Eval I: Summary Notes Anesthesia Complication No 03/22/24 10:59 AUDIO/VISUAL MANAGER.[facility] Anesthesia Complication Comment: Post-operative progress note Anesthesia: Postop Eval II Evaluation Mental status: Awake Pain Level: 0 nausea: No Vomiting: No
== END 2024-03-22 11:42 | disposition home or self-care (01) ==
LOC: SDC 08:53 → AC 08:54
PROVIDERS: PCP Family Medicine; Referring Provider Obstetrics & Gynecology; Visit Provider Obstetrics & Gynecology
PROC: 0UDB8ZZ Extraction of Endometrium, Via Natural or Artificial Opening Endoscopic (ICD-10-PCS; CPT 58558; principal; 2024-03-22 10:20)
DX: N85.8 Other specified noninflammatory disorders of uterus (principal); E11.9 Type 2 diabetes mellitus without complications; N95.0 Postmenopausal bleeding; I10 Essential (primary) hypertension; Z85.3 Personal history of malignant neoplasm of breast; R93.89 Abnormal findings on diagnostic imaging of other specified body structures; Z79.84 Long term (current) use of oral hypoglycemic drugs; Z79.85 Long-term (current) use of injectable non-insulin antidiabetic drugs; J45.20 Mild intermittent asthma, uncomplicated; F41.9 Anxiety disorder, unspecified; F32.9 Major depressive disorder, single episode, unspecified; Z79.899 Other long term (current) drug therapy
CPT/HCPCS: 58558; 00952; 36415; 82962; 85027; 86850; 86900; 86901; 88305; J7120; J2405

== ENCOUNTER → 2024-12-20 | Outpatient (CLI) | payer OTHER, SELFPAY ==
--- NOTE | 2024-12-20 12:03 | BI_ITS ---
EXAM: SCRN MAMM (CAD)W/ROMY BILAT 12/20/2024 CLINICAL HISTORY: F, Age 54 y/o , SCREENING FOR BREAST CANCER TECHNIQUE: Bilateral screening digital breast tomosynthesis with 2D and 3D images. Computer aided detection. COMPARISON: Prior exam(s) dated 12/18/2023, 12/02/2022. FINDINGS: TISSUE DENSITY: The breast tissue is composed of scattered area of fibroglandular density. Bilateral Breast Mammographic Findings: No significant masses, calcifications or other abnormalities are identified. BI/SCRN MAMM (CAD)W/ROMY BILAT IMPRESSION: Right Breast: BIRADS 1 NEGATIVE. Left Breast: BIRADS 1 NEGATIVE. OVERALL FINAL ASSESSMENT: BIRADS 1 NEGATIVE. RECOMMENDATION: Routine annual follow-up in 1 Year A letter with findings and recommendations will be mailed to the patient. Reading Location: [id number]
== END | disposition home or self-care (01) ==
LOC: OPBI 12:01
PROVIDERS: PCP Family Medicine; Referring Provider Obstetrics & Gynecology; Visit Provider Obstetrics & Gynecology
DX: Z12.31 Encounter for screening mammogram for malignant neoplasm of breast (principal)
CPT/HCPCS: 77063; 77067

== ENCOUNTER → 2025-04-19 | Outpatient (CLI) | payer OTHER, SELFPAY ==
--- NOTE | 2025-04-19 11:42 | RAD_ITS ---
PROCEDURE: SINUSES MIN 3 VIEWS 04/19/2025 REASON FOR EXAM: RIGHT SIDED SINUS PAIN TECHNIQUE: SINUSES MIN 3 VIEWS COMPARISON: None FINDINGS: Bones: Unremarkable Sinuses: Partial opacification of the right maxillary sinus suggestive of sinusitis. Additional findings: RAD/Sinuses min 3 Views IMPRESSION: Findings suggestive of right maxillary sinusitis. Reading Location: [id number]
--- NOTE | 2025-04-19 11:42 | RAD_ITS ---
PROCEDURE: CERV SPINE 4 OR 5 VIEWS 04/19/2025 REASON FOR EXAM: NECK PAIN TECHNIQUE: CERV SPINE 4 OR 5 VIEWS COMPARISON: None. FINDINGS: There are no compression fractures or subluxations. There is loss of the normal cervical lordosis. There is degenerative disc disease C4-5 with narrowing of the disc space and marginal osteophytes. There is no significant facet arthropathy. There is no spondylolisthesis. The paravertebral soft tissues are normal. RAD/Cerv Spine 4 or 5 Views IMPRESSION: Degenerative disc disease, C4-5 with cervical spasm. Reading Location: [id number]
--- OUTSIDE RECORDS SUMMARY | 2025-04-19 16:49 | XMS RPT_ITS | CCD ---
Author Organization [facility] Care Team Providers [employer] Producer Name Role Phone Dr. Jessa Scott Primary Care Provider Dr. Jessa Scott Referring Provider Dr. Michael Roque Attending Provider [phone] Sonia, Dr. Germain Primary Care Provider Sonia, Dr. Germain Referring Provider [phone] Amberly DOS SANTOS, LEVON-Cam Valdez Attending Provider [phone] Dr. Abi Watts Attending Provider Dr. Jessa Scott Primary Care Provider [phone] Sonia, Dr. Germain Referring Provider Dr. Abi Watts Attending Provider [phone] Dr. Jessa Scott DO Primary Care Provider [phone] Dr. Jessa Scott DO Referring Provider [phone] Dr. Abi Watts MD Attending Provider Dr. Abi Watts MD Referring Provider Lexi Ness NP Attending Unavailable Malys, Jessa Referring Unavailable Malys, Jessa Primary Care Unavailable Courtney Gaming NP Attending Unavailable Malys, Jessa Referring Unavailable Malys, Jessa Primary Care Unavailable Abi Watts Attending Unavailable Malys, Jessa Referring Unavailable Malys, Jessa Primary Care Unavailable Rahel Kolb Consulting Unavailabl e Rahel Kolb Attending Unavailabl e Malys, Jessa Primary Care Unavailable Rahel Kolb Referring Unavailabl e Malys, Jessa Primary Care Unavailable Malys, Jessa Referring Unavailable Vande Velde, Rahel Attending Unavailabl e Malys, Jessa Primary Care Unavailable Malys, Jessa Referring Unavailable Rahel Kolb Attending Unavailabl e Kjys, Jessa Primary Care Unavailable Rahel Kolb Attending UnavailRahel Escobedo Referring Unavaildominic e Abi Watts Attending Unavailable Abi Watts Referring Unavailable Malys, Jessa Primary Care Unavailable Rahel Kolb Referring Unavailabl e Malys, Jessa Primary Care Unavailable Rahel Kolb Attending Unavailabl e Allergies Allergy Classification Reported Allergen(s) Allergy Type Date of Onset Reaction(s) Facility (5 sources) Amoxicillin Drug Allergy 2 NAUSEA/VOMITTIN G [facility] (6 sources) HYDROcodone; Translations: [hydrocodone bitartrate] Drug Allergy 2 NAUSEA/VOMITTIN G [facility] (6 sources) Naproxen; Translations: [naproxen sodium] Drug Allergy 2 Itching, AIRWAY SWELLS [facility] (1 source) Amoxicillin Drug Allergy 5 [facility] Repository Medications Current Medications Medication Drug Class(es) Dates Sig (Normalized) Sig (Original) [id number] 200 actuat albuterol 0.09 mg/actuat metered dose inhaler (13 sources) beta2-Adrenergic Agonist Start: 08-19-2022 End: 09-19-2022 Albuterol Sulfate (Ventolin Hfa) 90 mcg/actuation HFA aerosol inhaler Active 2 NMA INHALATION Q4H as needed for shortness of breath or wheezing September 19, 2022 9:39am Start: 08-19-2022 End: 09-19-2022 take 1 puff(s) by inhalation every four hours Albuterol Sulfate (Ventolin Hfa) 90 mcg/actuation HFA aerosol inhaler Active 2 PUFF INHALATION Q4H September 19, 2022 9:39am Start: 01-16-2016 End: 11-02-2018 take 2 puff(s) by inhalation four times daily Albuterol Sulfate 1 INHALER inhaler Discontinued 2 NMA INHALATION EVERY 6 HOURS X 10 DAYS January 16, 2016 12:00am November 02, 2018 10:53am use 2 puffs four times a day for 10 days Start: 01-16-2016 End: 11-02-2018 take 2 puff(s) by inhalation four times daily Albuterol Sulfate Discontinued 2 PUFF INHALATION EVERY 6 HOURS X 10 DAYS January 16, 2016 12:00am November 02, 2018 10:53am use 2 puffs four times a day for 10 days carvedilol 6.25 mg oral tablet (2 sources) alpha-Adrenergic Salma, beta-Adrenergic Salma Start: 03-14-2024 take 1 tablet by mouth at mealtime Carvedilol 6.25 mg tablet Active 6.25 mg PO AT BEDTIME March 14, 2024 12:00am must administer with a meal/food Start: 03-01-2024 take 2 tablets by mo uth once daily at mealtime Carvedilol 6.25 mg tablet Active 12.5 mg PO DAILY March 01, 2024 12:00am must administer with a meal/food Dulaglutide (7 sources) GLP-1 Receptor Agonist Start: 04-05-2024 Dulaglu tide (Trulicity) 4.5 mg/0.5 mL pen injector Active 4.5 mg SC EVERY WEEK April 05, 2024 12:00am Start: 12-18-2023 End: 04-05-2024 Dulaglutide (Trulicity) 0.75 mg/0.5 mL pen injector Discontinued 1.5 mg SC NATH December 18, 2023 9:33am April 05, 2024 1:06pm Start: 12-18-2023 Dulaglutide (T rulicity) 0.75 mg/0.5 mL pen injector Active 3 MG SC EVERY WEEK December 18, 2023 9:33am Start: 08-25-2023 End: 12-18-2023 Dulaglutide (Trulicity) 0.75 mg/0.5 mL pen injector Discontinued 1.5 mg SC EVERY WEEK August 25, 2023 1:00am December 18, 2023 9:33am glipiZIDE 5 mg oral tablet (15 sources) Sulfonylurea Start: 03-14-2024 take 1 tablet by mouth once daily Glipizide 5 mg tablet Active 5 mg PO DAILY March 14, 2024 12:00am Start: 08-19-2022 End: 08-25-2023 take 10 mg by mouth twice daily Glipizide Discontinued 10 MG PO TWICE A DAY August 19, 2022 2:23pm August 25, 2023 11:38am Start: 11-19-2021 End: 08-25-2023 take 1 tablet by mouth twice daily Glipizide 2.5 mg tablet extended release 24hr Discontinued 10 mg PO TWICE A DAY August 19, 2022 2:23pm August 25, 2023 11:38am Start: 11-19-2021 End: 08-19-2022 take 5 mg by mouth twice daily Glipizide Discontinued 5 MG PO TWICE A DAY November 19, 2021 4:25pm August 19, 2022 2:24pm Start: 06-07-2021 End: 11-19-2021 take 1 tablet by mouth once daily Glipizide 2.5 mg tablet extended release 24 hr Discontinued 2.5 mg PO DAILY June 07, 2021 12:00am November 19, 2021 4:25pm potassium chloride 10 meq extended release oral tablet (10 sources) Start: 11-13-2020 take 1 tablet by mouth once daily Potassium Chloride 10 mEq tablet extended release Active 10 meq PO DAILY November 13, 2020 1:00am Start: 11-26-2015 End: 11-08-2019 take 1 tablet by mouth once daily Potassium Chloride 10 MEQ tablet Discontinued 10 meq PO DAILY November 26, 2015 12:00am November 08, 2019 10:10am venlafaxine 37.5 mg oral tablet (9 sources) Serotonin and Norepinephrine Reuptake Inhibitor Start: 11-02-2018 End: 12-02-2022 take 1 tablet by mouth once daily Venlafaxine 37.5 mg tablet Active 37.5 mg PO DAILY December 02, 2022 11:39am Completed/Discontinued Medications Medication Drug Class(es) Dates Sig (Normalized) Sig (Original) acetaminophen 325 mg / oxyCODONE hydrochloride 5 mg oral tablet (5 sources) Opioid Agonist Start: 03-22-2018 End: 11-02-2018 Oxycodone-Acetamin ophen (Percocet) 5-325 mg tablet Discontinued 1 {tbl} PO Q4H as needed for pain March 22, 2018 November 02, 2018 10:53am atenolol 50 mg oral tablet (10 sources) beta-Adrenergic Salma Start: 04-26-2019 End: 02-29-2024 take 1 tablet by mouth once daily Atenolol 50 mg tablet Discontinued 50 mg PO DAILY April 26, 2019 12:00am February 29, 2024 8:11am Start: 11-26-2015 End: 03-30-2019 take 1 tablet by mouth once daily Atenolol 50 MG tablet Discontinued 50 mg PO DAILY November 26, 2015 12:00am March 30, 2019 4:13pm benzonatate 200 mg oral capsule (5 sources) Non-narcotic Antitussive Start: 11-10-2018 End: 11-08-2019 take 1 capsule by mouth three times daily as needed for cough Benzonatate 200 mg capsule Discontinued 200 mg PO THREE TIMES A DAY as needed for cough 90 November 10, 2018 1:00am November 08, 2019 10:10am clindamycin 150 mg oral capsule (5 sources) Lincosamide Antibacterial Start: 01-16-2016 End: 11-02-2018 take 3 capsules by mouth three times daily Clindamycin Hcl 150 MG capsule Discontinued 450 mg PO THREE TIMES A DAY January 16, 2016 12:00am November 02, 2018 10:53am Start: 01-16-2016 End: 11-02-2018 take 450 mg by mouth three times daily Clindamycin Hcl Discontinued 450 MG PO THREE TIMES A DAY 63 January 16, 2016 12:00am November 02, 2018 10:53am doxycycline hyclate 100 mg oral tablet (5 sources) Tetracycline-class Drug Start: 11-12-2018 End: 04-26-2019 take 1 tablet by mouth twice daily Doxycycline Hyclate 100 mg tablet Discontinued 100 mg PO TWICE A DAY November 12, 2018 1:00am April 26, 2019 10:06am fluconazole 150 mg oral tablet (5 sources) Azole Antifungal Start: 12-20-2021 End: 01-03-2022 Fluconazole (Diflucan) 150 mg tablet Discontinued 150 mg PO .COMPLEX 2 December 20, 2021 12:00am January 03, 2022 12:02pm 150 mg PO now and in 72 hours fluticasone propionate 0.05 mg/actuat metered dose nasal spray (5 sources) Corticosteroid Start: 11-12-2018 End: 11-08-2019 Fluticasone Propionate 50 mcg/actuation spray,suspension Discontinued 2 NMA INTRANASAL DAILY November 12, 2018 1:00am November 08, 2019 10:10am Start: 11-12-2018 End: 11-08-2019 Fluticasone Propionate Disco ntinued 2 SPRAY INTRANASAL DAILY November 12, 2018 1:00am November 08, 2019 10:10am hydroCHLOROthiazide 25 mg / lisinopril 20 mg oral tablet (10 sources) Thiazide Diuretic, Angiotensin Converting Enzyme Inhibitor Start: 11-02-2018 End: 03-01-2024 Lisinopril-Hydrochlorothiazi de 20-25 mg tablet Discontinued 1 {tbl} PO DAILY November 02, 2018 1:00am March 01, 2024 10:05am Start: 11-02-2018 take 1 tablet by benji th once daily Lisinopril-Hydrochlorothiazide Active 1 TABLET PO DAILY November 02, 2018 1:00am Start: 11-26-2015 End: 11-02-2018 Lisinopril-Hydrochlorothiazi de 1 TABLET tablet Discontinued 1 {tbl} PO DAILY November 26, 2015 12:00am November 02, 2018 10:53am Start: 11-26-2015 End: 11-02-2018 take 1 tablet by mouth once daily Lisinopril-Hydrochlorothiazide Discontin ued 1 TABLET PO DAILY November 26, 2015 12:00am November 02, 2018 10:53am ibuprofen 800 mg oral tablet (1 source) Nonsteroidal Anti-inflammatory Drug Start: 03-22-2024 End: 12-20-2024 take 1 tablet by mouth every eight hours as needed for pain Ibuprofen 800 mg tablet Discontinued 800 mg PO Q8H as needed for pain March 22, 2024 12:00am December 20, 2024 11:17am metFORMIN hydrochloride 500 mg oral tablet (5 sources) Biguanide Start: 11-13-2020 End: 08-25-2023 take 1 tablet by mouth once daily Metformin 500 mg tablet Discontinued 500 mg PO DAILY November 13, 2020 1:00am August 25, 2023 11:38am metroNIDAZOLE 500 mg oral tablet (5 sources) Nitroimidazole Antimicrobial Start: 01-03-2022 End: 01-10-2022 take 1 tablet by mouth twice daily Metronidazole 500 mg tablet Discontinued 500 mg PO TWICE A DAY 14 7 January 03, 2022 12:00am January 09, 2022 12:00am January 10, 2022 12:04am 120 actuat mometasone furoate 0.1 mg/actuat metered dose inhaler (10 sources) Corticosteroid Start: 04-30-2018 End: 11-02-2018 Mometasone (Asmanex Hfa) 100 mcg/actuation HFA aerosol inhaler Discontinued 2 NMA INHALATION TWICE A DAY April 30, 2018 12:40pm November 02, 2018 10:53am Start: 04-30-2018 End: 11-02-2018 take 1 puff(s) by inhalation twice daily Mometasone (Asmanex Hfa) 100 mcg/actuation HFA aerosol inhaler Discontinued 2 PUFF INHALATION TWICE A DAY April 30, 2018 12:40pm November 02, 2018 10:53am ondansetron 4 mg disintegrating oral tablet (5 sources) Serotonin-3 Receptor Antagonist Start: 10-13-2018 End: 11-02-2018 take 1 tablet by mouth every eight hours as needed for nausea Ondansetron 4 MG tablet Discontinued 4 mg PO EVERY 8 HOURS NEEDED as needed for Nausea October 13, 2018 1:00am November 02, 2018 10:53am predniSONE 20 mg oral tablet (5 sources) Start: 11-10-2018 End: 03-30-2019 take 3 tablets by mouth once daily at mealtime Prednisone 20 mg tablet Discontinued 60 mg PO daily November 10, 2018 1:00am March 30, 2019 4:14pm administer with food or milk Start: 11-10-2018 End: 03-30-2019 take 60 mg by mouth once daily at mealtime Prednisone Discontinued 60 MG PO daily November 10, 2018 1:00am March 30, 2019 4:14pm administer with food or milk sertraline 50 mg oral tablet (5 sources) Serotonin Reuptake Inhibitor Start: 11-26-2015 End: 11-02-2018 take 1 tablet by mouth once daily Sertraline 50 MG tablet Discontinued 50 mg PO DAILY November 26, 2015 12:00am November 02, 2018 10:54am tamoxifen 20 mg oral tablet (5 sources) Estrogen Agonist/Antagonist Start: 10-05-2017 End: 06-07-2021 take 1 tablet by mouth once daily Tamoxifen 20 mg tablet Discontinued 20 mg PO daily October 05, 2017 1:00am June 07, 2021 10:48am tranexamic acid 650 mg oral tablet (5 sources) Antifibrinolytic Agent Start: 03-22-2018 End: 05-26-2018 Tranexamic Acid (Lysteda) 650 mg tablet Discontinued 1300 mg PO Q8H as needed for heavy bleeding 30 5 March 22, 2018 12:00am May 25, 2018 12:00am May 26, 2018 12:05am Problems Problem Classification Problem Date Documented Da te Episodic/Chronic Asthma (7 sources) Mild intermittent asthma; Translations: [Mild intermittent asthma, uncomplicated] Chronic Cancer of breast (9 sources) History of malignant neoplasm of breast; Translations: [Personal history of malignant neoplasm of breast] Onset: 12-20-2024 10-05-2017 Episodic Comment on above: 2016- sees Dr Balderrama, [facility], took tamoxifen in the past. hasn't had genetic testing- offered empower. Essential hypertension (5 sources) Hypertensive disorder; Translations: [Essential (primary) hypertension] 06-10-2021 Chronic Comment on above: JUST STARTED ON CORE G 03/10/24 HAD BEEN ON ATENOLOL FOR 20 YRS Fever of unknown origin (5 sources) Fever; Translations: [Fever, unspecified] 01-13-2016 Episodic Inflammatory diseases of female pelvic organs (5 sources) Vaginitis; Translations: [Acute vaginitis] 01-03-2022 Episodic Menopausal disorders (7 sources) Postmenopausal bleeding; Translations: [Postmenopausal bleeding] Onset: 12-20-2024 12-18-2023 Chronic Comment on above: us:thick lining, EMB mesothilial cyst: D&C benign path Nausea and vomiting (5 sources) Nausea and vomiting; Translations: [Nausea with vomiting, unspecified] 01-13-2016 Episodic Other gastrointestinal disorders (5 sources) Diarrhea; Translations: [Diarrhea, unspecified] 01-13-2016 Episodic Other lower respiratory disease (5 sources) Dry cough; Translations: [Non-productive cough] 01-13-2016 Episodic Other screening for suspected conditions (not mental disorders or infectious disease) (2 sources) Endometrium thickened; Translations: [Abnormal findings on diagnostic imaging of other specified body structures] Onset: 04-07-2024 04-05-2024 Chronic Other screening for suspected conditions (not mental disorders or infectious disease) (6 sources) Patient encounter status; Translations: [Encounter for screening for malignant neoplasm of intestinal tract, unspecified] Onset: 12-26-2024 06-11-2021 Episodic Other upper respiratory disease (5 sources) Allergic rhinitis; Translations: [Allergic rhinitis, unspecified] 04-26-2019 Chronic Pleurisy; pneumothorax; pulmonary collapse (5 sources) Other pulmonary collapse; Translations: [Pulmonary collapse] 09-22-2017 Episodic Residual codes; unclassified (5 sources) Obstructive sleep apnea syndrome; Translations: [Obstructive sleep apnea (adult) (pediatric)] 06-07-2021 Chronic Comment on above: CPAP 9 cmH2O by nasa l interface Residual codes; unclassified (2 sources) Obstructive sleep apnea (adult) (pediatric); Translations: [Obstructive sleep apnea (adult)(pediatric)] Chronic Results Test Name Value Interpretation Reference Range Facility Breast imaging reportOrdered By: Indira Carrion on 12-20-2024 Study report [facility] Imaging Services [address] [place] [address] SCRN MAMM (CAD)W/ROMY BILAT MR#: [id number] Acct: [id number] Name: CARLOS OLIVERA Rep #: [id number] : 1970 F 54 From: Corry Carrion MD PCP: Dr. Jessa Scott DO Status: [facility] Study:SCRN MAMM (CAD)W/ROMY BILAT Date of Exa m: 12/20/24 Exam# [id number] Ordering Dr: Abi Singh MD EXAM: SCRN MAMM (CAD)W/ROMY BILAT 12/20/2024 CLINICAL HISTORY: F, Age 54 y/o , SCREENING FOR BREAST CANCER TECHNIQUE: Bilateral screening digital breast tomosynthesis with 2D and 3D images. Computeraided detection. COMPARISON: Prior exam(s) dated 12/18/2023, 12/02/2022. FINDINGS: TISSUE DENSITY: The breast tissue is composed of scattered area of fibroglandular density. Bilateral Breast Mammographic Findings: No significant masses, calcifications or other abnormalities are identified. BI/SCRN MAMM (CAD)W/ROMY BILAT IMPRESSION: Right Breast: BIRADS 1 NEGATIVE. Left Breast: BIRADS 1 NEGATIVE. OVERALL FINAL ASSESSMENT: BIRADS 1 NEGATIVE. RECOMMENDATION: Routine annual follow-up in 1 Year A letter with findings and recommendations will be mailed to the patient. Reading Location: [id number] CC: Dr. Jessa Scott DO; Dr. Abi Watts MD ~ Medical Accountant: Signed [facility] Architectural Job Captain Office Visit Reporton 12-20-2024 Architectural Job Captain Office Visit Report [facility]'s [address], [address] [place] [address] OFFICE VISIT Date of Service: 12/20/24 MR#: [id number] Acct: [id number] Name: CARLOS OLIVERA Rep #: [id number] : 1970 Provider: Dr. 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 Mechanic Required: No Accompanied by: Self Is patient in pain?: No Feel stressed/tense/nervous/an xious/difficulty sleeping: not at all Allergies naproxen sodium (From Aleve) Allergy (Verified 12/20/24 11:16) Itching, AIRWAY SWELLS amoxicillin Adverse Reaction (Verified 12/20/24 11:16) NAUSEA/VOMITTING hydrocodone bitartrate (From Vicodin) Adverse Reaction (Verified 12/20/24 11:16) NAUSEA/VOMITTING Medications ???Medication ???Instructions ???Recorded ???Confirmed ???Type potassium chloride 10 mEq 10 meq PO DAILY 11/13/20 12/20/24 History tablet,extended release albuterol sulfate 90 mcg/actuation 2 puff inhalation Q4H PRN 12/20/24 Rx aerosol inhaler (Ventolin HFA) shortness of breath or wheezing #18 grams venlafaxine 37.5 mg tablet 37.5 mg PO DAILY #90 tabs 12/02/22 12/20/24 Rx carvedilol 6.25 mg tablet 12.5 mg PO DAILY 03/01/24 12/20/24 History carvedilol 6.25 mg tablet 6.25 mg PO QHS 03/14/24 12/20/24 H istory glipizide 5 mg tablet 5 mg PO DAILY 03/14/24 12/20/24 Hi story dulaglutide 4.5 mg/0.5 mL 4.5 mg subcut QWEEK 04/05/2412/20 History subcutaneous pen injector (Trulicity) Is last menstrual period known: No Post menopausal: Yes Patient : No : No PFSH Medical History (Updated 12/20/24 @ 11:[address] Abi Watts MD) Postmenopausal bleeding Post-menopausal Wears glasses Anxiety Asthma Cancer Depression Dietary restriction Non-smoker Type 2 diabetes mellitus CPAP (continuous positive airway pressure) dependence HTN (hypertension) History of breast cancer Lung collapse Surgical History H/O dilation and curettage Hx of colonoscopy Hx of adenoidectomy S/P lumpectomy, left breast Family History Grandmother Breast cancer Father Hypertension Prostate cancer Alzheimer disease Social History (Updated 12/20/24 @ 11:18 by Lexi Manzo) number of children: 2 current occupational status: employed current occupation: [employer] Smoking Status: Never smoker alcohol intake: never substance use type: does not use caffeine: No frequency: 1-2 times per week seatbelt use: always do you feel safe at home: Yes additional social history: [employer] History 2 Elective abortions Hx Para 2 Spontaneous abortions Hx # Term Pregnancies Ectopic pregnancies Hx # Pregnancies Multiple births # of living children Past Pregnancies Del. Date Name GA/Weeks Outcome Route Bth Weight Infant Gen Labor Lgth Anesthesia Del Locatn Provider FOB Unknown 1996 Gerri Unknown 1999 [facility] Encounter for routine gynecological examination Details: CARLOS GUIDETTI is a 54 year old who presents for annual exam. Last PAP: 11/13/2020 - normal History of abnormal PAP: Last mammogram: 12/18/2023 - scheduled for today History of abnormal mammogram: Colon cancer screenin Other preventative health care screenings: PCP [facility] Female Reproductive History Questions: metorrhagia: No, sexually active: Yes, dyspareunia: No and PCB: No Menopausal Symptoms: No hot flashes, No night sweats, No weight change, No mood changes, No difficulty concentrating, No sleep problems and No change in libido ROS Const Constitutional: Reports as per HPI; Denies fatigue, increased appetite, poor appetite, night sweats, weight gain or weight loss Cardio Card: Denies chest pain Resp Resp: Denies cough or dyspnea GI GI: Reports as per HPI; Denies abdominal pain, bloating, constipation, nausea or vomiting : Reports as per HPI and other; Denies difficulty voiding, dysuria, hematuria, hot flashes, nipple discharge, pelvic pain, prolapse symptoms, urinary frequency, urinary incontinence, urinary urgency, vaginal discharge, vaginal dryness, vaginal odor or vaginal pruritus Skin Skin/Breast: Denies changing lesions (more content not included)... Normal [facility] SCRN MAMM (CAD)W/ROMY BILATo n 12-20-2024 SCRN MAMM (CAD)W/ROMY BILAT [facility] Imaging Services [address] [place] [id number] SCRN MAMM (CAD)W/ROMY BILAT MR#: [id number] Acct: [id number] Name: CARLOS OLIVERA Rep #: [id number] : 1970 F 54 From: Indira Carrion MD PCP: Dr. Jessa Scott, DO Status: [facility] Study: SCRN MAMM (CAD)W/ROMY BILAT Date of Exam: 05/08 Exam# [id number] Ordering Dr: Abi Watts EXAM: SCRN MAMM (CAD)W/ROMY BILAT 12/20/2024 CLINICAL HISTORY: F, Age 54 y/o , SCREENING FOR BREAST CANCER TECHNIQUE: Bilateral screening digital breast tomosynthesis with 2D and 3D images. Computer aided detection. COMPARISON: Prior exam(s) dated 12/18/2023, 12/02/2022. FINDINGS: TISSUE DENSITY: The breast tissue is composed of scattered area of fibroglandular density. Bilateral Breast Mammographic Findings: No significant masses, calcifications or other abnormalities are identified. BI/SCRN MAMM (CAD)W/ROMY BILAT IMPRESSION: Right Breast: BIRADS 1 NEGATIVE. Left Breast: BIRADS 1 NEGATIVE. OVERALL FINAL ASSESSMENT: BIRADS 1 NEGATIVE. RECOMMENDATION: Routine annual follow-up in 1 Year A letter with findings and recommendations will be mailed to the patient. Reading Location: [id number] CC: Dr. Jessa Scott DO; Dr. Abi Watts MD Medical Accountant: Signed Normal [facility] Pulmonary Visit Reporton Pulmonary Visit Report [facility] Pulmonary Medicine of [address] [place] [address] OFFICE VISIT Date of Service: 08/24/24 MR#: [id number] Acct: [id number] Name: CARLOS OLIVERA Rep #: [id number] : 1970 Provider: ELIE Gaming Age/Sex: 54/F Location[place] [email or web address] Status: Signed Assessment and Plan Assessment and Plan (1) AMELIE (obstructive sleep apnea): Status: Chronic Comment: CPAP 9 cmH2O by nasal interface Plan: Patient is using and benefiting from Pap therapy. No indication for titration study at this time. Contact the office for any new or worsening symptoms in the meantime. Follow-up in 1 year. (2) Asthma, mild intermittent, well-controlled: Status: Chronic Plan: Stable, no signs of exacerbation of asthma today. Not currently requiring maintenance medications. No additional testing at this time. Contact the office with any signs of new or worsening symptoms. Follow-up in 1 year. HPI 1 Y FU Chief Complaint: Routine follow-up HPI Comments Details: This patient presents to the office today for follow-up of her obstructive sleep apnea and mild intermittent asthma. She is ambulatory and currently on room air. She has not been seen in the ED or urgent care for any respiratory illnesses. She has not required any antibiotics or prednisone for any breathing problems. She does not typically require the use of the albuterol. If you recall, she is a lifelong never smoker. She is feeling rested with the use of her Pap device. She is not having difficulty with dry mouth. She is not snoring through the machine. She does have some nasal congestion and had recently been using Afrin nasal spray. She is requesting an alternative as she knows that Afrin is habit-forming. She is not having morning headaches. She is not having excessive nocturia. She denies any difficulty with shortness of breath. She denies any cough, sputum production or hemoptysis. She has not had any wheezing, chest tightness, chest pain or palpitations. She also denies any fever, chills or body aches. Compliance report available for review shows 100% compliance for the past 30 days with an average use of 7 hours and 24 minutes per night. Current setting is CPAP 9 cmH2O with residual AHI of 1.9 events per hour. Leaks do not appear to be problematic. Intake Vital Signs 08/25/23 05:39 04/05/24 13:06 08/24/24 08:02 Height 5 ft 4 in 5 ft 4 in 5 ft 4 in Weight: 157 lb BMI 26.9 BP 135/94 H Blood Pressure Location Lt brachial Position Sitting Respiration 18 Pulse 87 Pulse Source Monitor Temp 97.4 F L Temperature Source Temporal Artery Pulse Oximetry (%) 98 Oxygen Delivery Method room air Intake Visit Reasons: 1 Y FU Telephone Mechanic Required: No DME Vendor: cpap- [employer]co Accompanied by: Self Is patient in pain?: No Allergies naproxen sodium (From Aleve) Allergy (Verified 08/24/24 11:13) Itching, AIRWAY SWELLS amoxicillin Adverse Reaction (Verified 08/24/24 11:13) NAUSEA/VOMITTING hydrocodone bitartrate (From Vicodin) Adverse Reaction (Verified 08/24/24 11:13) NAUSEA/VOMITTING Medications ???Medication ???Instructions ???Recorded ???Confirmed ???Type potassium chloride 10 mEq 10 meq PO DAILY 11/13/20 08/24/24 History tablet,extended release albuterol sulfate 90 mcg/actuation 2 puff inhalation Q4H PRN 09/19/22 08/24/24 Rx aerosol inhaler (Ventolin HFA) shortness of breath or wheezing #18 grams venlafaxine 37.5 mg tablet 37.5 mg PO DAILY #90 tabs 12/02/22 08/24/24 Rx carvedilol 6.25 mg tablet 12.5 mg PO DAILY 03/01/24 08/24/24 History carvedilol 6.25 mg tablet 6.25 mg PO QHS 03/14/24 08/24/24 History glipizide 5 mg tablet 5 mg PO DAILY 03/14/24 08/24/24 History ibuprofen 800 mg tablet 800 mg PO Q8H PRN pain #20 tabs 03/22/24 08/24/24 Rx dulaglutide 4.5 mg/0.5 mL 4.5 mg subcut QWEEK 04/05/24 08/24/24 History subcutaneous pen injector (Trulicity) PFSH Medical History Postmenopausal bleeding Post-menopausal Wears glasses Anxiety Asthma Cancer Depression Dietary restriction Non-smoker Type 2 diabetes mellitus CPAP (continuous positive airway pressure) dependence HTN (hypertension) History of breast cancer Lung collapse Surgical History H/O dilation and curettage Hx of colonoscopy Hx of adenoidectomy S/P lumpectomy, left breast Family History (Updated 08/24/24 @ 11:18 by Aminah Lundberg) Grandmother Breast cancer Father Hypertension Prostate cancer Alzheimer disease Social History Smoking Status: Never smoker alcohol intake: never substance use type: does not use caffeine: No frequency: 1-2 times per we (more content not included)... Normal [facility] Architectural Job Captain Office Visit Reporton 04-05-2024 Architectural Job Captain Office Visit Report [facility] [place] [address] [place] [address] OFFICE VISIT Date of Service: 04/05/24 MR#: [id number] Acct: [id number] Name: FARHANAEARLTasiaCARLOSLenny HUERTA Rep #: [id number] : 1970 Provider: ELIE stevens Age/Sex: 53/F Location: [facility] Status: Signed Intake Vital Signs 02/29/24 08:08 03/22/24 09:19 04/05/24 13:02 04/05/24 13:06 Height 5 ft 4 in 5 ft 4 in 5 ft 4 in 5 ft 4 in Weight: 160 lb 4 oz BMI 27.5 BP 120/78 Intake Visit Reasons: 2 wk D C Chief Complaint: 2 Week D C Telephone Mechanic Required: No Is patient in pain?: No Allergies naproxen sodium (From Aleve) Allergy (Verified 04/05/24 13:01) Itching, AIRWAY SWELLS amoxicillin Adverse Reaction (Verified 04/05/24 13:01) NAUSEA/VOMITTING hydrocodone bitartrate (From Vicodin) Adverse Reaction (Verified 04/05/24 13:01) NAUSEA/VOMITTING Medications ???Medication ???Instructions ???Recorded ???Confirmed ???Type potassium chloride 10 mEq 10 meq PO DAILY 11/13/20 04/05/24 History tablet,extended release albuterol sulfate 90 mcg/actuation 2 puff inhalation Q4H PRN 09/19/22 04/05/24 Rx aerosol inhaler (Ventolin HFA) shortness of breath or wheezing #18 grams venlafaxine 37.5 mg tablet 37.5 mg PO DAILY #90 tabs 12/02/22 04/05/24 Rx carvedilol 6.25 mg tablet 12.5 mg PO DAILY 03/01/24 04/05/24 History carvedilol 6.25 mg tablet 6.25 mg PO QHS 03/14/24 04/05/24 History glipizide 5 mg tablet 5 mg PO DAILY 03/14/24 04/05/24 History ibuprofen 800 mg tablet 800 mg PO Q8H PRN pain #20 tabs 03/22/24 04/05/24 Rx dulaglutide 4.5 mg/0.5 mL 4.5 mg subcut QWEEK 04/05/24 04/05/24 History subcutaneous pen injector (Trulicity) Is last menstrual period known: No Post menopausal: Yes Patient : No PFSH Medical History Postmenopausal bleeding Post-menopausal Wears glasses Anxiety Asthma Cancer Depression Dietary restriction Non-smoker Type 2 diabetes mellitus CPAP (continuous positive airway pressure) dependence HTN (hypertension) History of breast cancer Lung collapse Surgical History (Updated 04/05/24 @ 13:19 by Lexi Ness NP, REALTIME COURT REPORTER-C) H/O dilation and curettage Hx of colonoscopy Hx of adenoidectomy S/P lumpectomy, left breast Family History Grandmother Breast cancer Father Hypertension Prostate cancer Social History Smoking Status: Never smoker alcohol intake: never substance use type: does not use caffeine: No frequency: 1-2 times per week seatbelt use: always do you feel safe at home: Yes additional social history: [employer] Gill[employer] Patient works from home HPI 2 wk D C Details: CARLOS OLIVERA is a 53 year old who presents for 2 week postop D C/Dr Kolb for postmenopausal bleeding. She states she has some light brown discharge day of procedure and no bleeding since. She has had no pain. She is doing well. History 2 Elective abortions Hx Para 2 Spontaneous abortions Hx # Term Pregnancies Ectopic pregnancies Hx # Pregnancies Multiple births # of living children Past Pregnancies Del. Date Name GA/Weeks Outcome Route Bth Weight Gen Labor Lgth Anesthesia [facility] Provider FOB Unknown 1996 Gerri Unknown 1999 Tu Exam Const General: cooperative and no acute distress Orientation: oriented x3 Resp Effort Inspection: normal respiratory effort Neuro Cognition: normal cognition Speech: speech normal Psych Appearance: grossly normal Mood: congruent mood Affect: normal affect Speech and Movement: speech and movement normal Attitude: cooperative Judgment: judgment good Coding Level of Care Code No Charge Diagnoses Postop check Z09 H/O dilation and curettage Z98.890 History of breast cancer Z85.3 Assessment and Plan Assessment and Plan (1) Postop check: (2) H/O dilation and curettage: Status: Acute Comment: benign path (3) History of breast cancer: Status: Acute Comment: 2016- sees Dr Balderrama, [place], took tamoxifen in the past Plan Return to normal activity Call with any vaginal bleeding RTO annual exam, prn 04/05/24 1320 Date Lexi Ness REALTIME [employer] REPORTER [employer]TIME [employer] REPORTER-C Cosigner Signature: Date (if applicable) CC: Dr. Rahel Kolb DO Normal [facility] Bedside Glucoseon 03-22-2024 FINGERSTICK GLU 143 mg/dL High 74-106 [facility] Comment on above: Result Comment: CALI RODRIGUEZ OF PATIENT CARE PER NURSING PROTOCOL Performed By: #### L 501.080 #### [facility] Laboratory [address] [place], [address] Discharge Instructionon Discharge Instruction [facility] Medical Records Department [address] [place] [address] Instructions for Home/Discharge Instructions 03/22/24 1052 MR#: [id number] Acct: [id number] Name: CARLOS OLIVERA Rep #: [id number] : 1970 53 From: Rahel Kolb DO PCP: Dr. Jessa Scott DO Status:REG [facility] Discharge Instructions Diet Discharge Diet: No restrictions Activity Discharge Activity: Return to Normal Activity, May Shower and May Take a Tub Bath (after 1 week) May resume sexual activity in: 1-2 weeks Weight Bearing Status: Weight bearing as tolerated Lifting Restrictions: none Dressing / Incision Call your doctor if you observe: Fever of 101 or Higher, Using more than 1 pad per hour, Shortness of breath and Uncontrolled pain Follow Up Care Please Follow Up With: Rahel Kolb DO When: Call [phone] to schedule appointment. Test Results: Test results from this visit will be discussed in further detail at your follow-up appointment, if applicable. Discharge Plan Admission Primary Reason for Your Visit: dilation and curettage Attending Provider: Rahel Kolb Primary Care Provider: Jessa Scott Instructions Print Language: Persian Discharge Orders/Prescriptions Prescriptions: New ibuprofen 800 mg tablet 800 mg PO Q8H PRN (Reason: pain) Qty: 20 0RF Continued potassium chloride 10 mEq tablet extended release 10 meq PO DAILY venlafaxine 37.5 mg tablet 37.5 mg PO DAILY Qty: 90 12RF Trulicity 0.75 mg/0.5 mL pen injector 1.5 mg subcut NATH carvedilol 6.25 mg tablet 12.5 mg PO DAILY Rx Instructions: must administer with a meal/food glipizide 5 mg tablet 5 mg PO DAILY carvedilol 6.25 mg tablet 6.25 mg PO QHS Rx Instructions: must administer with a meal/food albuterol sulfate [Ventolin HFA] 90 mcg/actuation HFA aerosol inhaler 2 puff inhalation Q4H PRN (Reason: shortness of breath or wheezing) Qty: 18 6RF Referrals / Follow Up: Jessa Scott DO [Primary Care Provider] - Disposition Disposition (needs filled in before D/C Order can be placed): Home, Self Care 03/22/24 1053 [facility] Loco Garcia DO CC: Dr. Jessa Scott DO Signed [facility] MR/POSTOP.[facility] 03-22-2024 MR/POSTOP.[facility] Medical Records Department [address] [place] [address] Anesthesia Postop Eval I 03/22/24 1058 MR#: [id number] Acct: [id number] Name: CARLOS OLIVERA Rep #: [id number] : 1970 53 From: Michelle Bledsoe CRNA PCP: Dr. Jessa Scott DO Status:REG SDC Y Race: C Location: [place] [address] Anesthesia: Postop Eval I Current Vital Signs Temperature: 97.3 F Pulse Rate: 77 Blood Pressure: 131/78 Respiratory Rate: 16 Pulse Ox: 95 Oxygen Delivery Method: Room Air Assessment Airway patent: Yes Spontaneous unlabored respirations: Yes Mental status: Awake and Calm nausea: No Vomiting: No Anesthesia Complication: No Fluid Hydration Crystalloid volume administer (ml): 400 Total IV fluid infused: 400 Progress Note Anesthesia document: Postop Eval 1 completed: Yes 03/22/24 1059 Date Michelle Bledsoe [facility] Cheryl Signature: Date CC: Signed Normal [facility] MR/[id number] 03-22-2024 MR/POSTOPAN2 [facility] Medical Records Department [address] [place] [address] Anesthesia Postop Eval II 03/22/24 1149 MR#: [id number] Acct: [id number] Name: CARLOS OLIVERA Rep #: [id number] : 1970 53 From: Mian Schmidt MD PCP: Dr. Jessa Scott, DO Status:[facility] Race: C Location: [facility] Anesthesia Postop Eval I Sum Postop Eval Completion status Anesthesia document: Postop Eval 1 completed: Yes Anesthesia Postop Eval I Summary Anesthesia Postop Eval I Summary: Anesthesia Postop Eval I: Assessment Summary Airway patent Yes 03/22/24 10:59 [facility] Spontaneous unlabored Yes 03/22/24 10:59 [facility] respirations Mental status Awake,Calm 03/22/24 10:59 [facility] nausea No 03/22/24 10:59 [facility] Vomiting No 03/22/24 10:59 [facility] Anesthesia Postop Eval I: Fluid Summary Crystalloid volume administer 400 03/22/24 10:59 [facility] (ml) Colloids volume administered ( ml) Blood Product volume administered (ml) Total IV fluid infused 400 03/22/24 10:59 [facility] Anesthesia Postop Eval I: Summary Notes Anesthesia Complication No 03/22/24 10:59 [facility] Anesthesia Complication Comment: Post-operative progress note Anesthesia: Postop Eval II Evaluation Mental status: Awake Pain Level: 0 nausea: No Vomiting: No 03/22/24 1150 Date Mian Schmidt MD Cosigner Signature: Date CC: Signed Normal [facility] Operative Reporton 4 Operative Report [facility] Medical Records Department [address] [place] [address] Operative Report 03/22/24 1050 MR#: [id number] Acct: [id number] Name: CARLOS OLIVERA Rep #: [id number] : 1970 53 From: Rahel Kolb DO PCP: Dr. Jessa Scott, DO Status:[facility] Location: [place] [address] Problems Associated Problem List Diagnoses (1) Thickened endometrium: (2) Postmenopausal bleeding: Report of Operation Date of Procedure: 03/22/24 Pre-Operative Diagnosis: thickened endometrium, postmenopausal bleeding Post-Operative Diagnosis: thickened endometrium, postmenopausal bleeding Surgery/Procedure Performed:: hysteroscopy dilation and curettage Description of Surgical Findings:: thin endometrium Surgeon: Rahel Kolb sas programmer analyst: None Type of Anesthesia: MAC and Topical Anesth Anesthesiologist: Mian Schmidt Specimen's removed: endometrial curetting's Drains: none Estimated Blood Loss (mL): 5cc Description of Procedure: Patient was prepped and draped in a normal sterile fashion under MAC anesthesia. A weighted speculum was placed in the vagina and the anterior lip of the cervix was grasped with a single-tooth tenaculum. A paracervical block was placed with 1% lidocaine. Cervix was progressively dilated to allow passage of a 5 mm hysteroscope. The lining was fully visualized and noted to be fairly atrophic . Uterine sounded to 7 cm. Curettage was performed and scant tissue was sent to pathology. All instruments were removed from the vagina and excellent hemostasis was noted. Patient was awoken and taken to recovery in stable condition. Complications none Admit VTE Documentation VTE Present on Admission: No VTE Mechan Device Prophylaxis: SCD's VTE Pharm Prophylaxis ordered?: No Multi Select Codes Urinary/Genital Urinary/Genital CPT Codes: 87270 Hysteroscopy,EMC, Polypectomy 03/22/24 1052 Cosigner Signature (if applicable): CC: Dr. Rahel Kolb, ; Dr. Jessa Scott DO Signed [facility] ,Urineon 03-22-2024 Beta HCG ( test) Ql (U) [facility] Comment on above: Result Comment: [facility]. Performed By: #### P SUIV #### [facility] [address] [place], [place], [address] INTERNAL QC OK? [facility] Comment on above: Result Comment: [facility]PART[facility]. Performed By: #### P SUIV #### [facility] [address] [place], [place], [address] RECORD KIT LOT# [facility] Comment on above: Result Comment: [facility]PART[facility]. Performed By: #### P SUIV #### [facility] [address] [place], [place], [address] Surgery Specimen Level Andrew 03-22-2024 Surgery Specimen Level IV Patient Age/Sex Location Account Attending Physician CARLOS OLIVERA 53/F [facility] [id number] Manoj Alfred Specimen: [id number] Received: 03/22/24 Status: ARIANE Love Num: [id number] Spec Type: ENDOM BX/C Subm Dr: Dr. Rahel Kolb, DO HEADER OPERATION: Hysteroscopy, D C PRE-OP DIAGNOSIS: Thickened endometrium, postmenopausal bleeding, history of breast cancer TISSUE SUBMITTED: Endometrial currettings MICROSCOPIC DIAGNOSIS Endometrial curettings: Fragments of inactive endometrium with focal cystic changes. / 03/23/2024 MICROSCOPIC DESCRIPTION Slides are reviewed. GROSS DESCRIPTION Received in fixative is one container labeled with the patient's name and designated Endometrial curettings. The specimen consists of multiple irregular fragments of dumont-pink soft tissue that in aggregate measure 1.0 x 0.1 x 0.1 cm. The specimen is totally submitted in one cassette. / 03/22/2024 TC:5 CPT:49023 Patient Age/Sex Location Account Attending Physician JOSELINCARLOS CHAMBERSN 53/F [facility] [id number] Manoj Alfred Signed (signature on file) Dr. Asad Goodwin MD 03/23/24 1238 Normal [facility] Comment on above: Performed By: #### P SUIV #### [facility] [address] [place], [address] CBC-Complete Blood Cnt No Di ffon 03-16-2024 Erythrocyte distribution width (RBC) [Ratio] 13.7 % Normal 11.6-14.6 [facility] Comment on above: Performed By: #### P SUIV #### [facility] [address] [place], [address] Hematocrit (Bld) [Volume fraction] 39.4 % Normal 37-47 [facility] Comment on above: Performed By: #### P SUIV #### [facility] [address] [place], [address] Hemoglobin (Bld) [Mass/Vol] 12.4 g/dL Normal 12.0-15.0 [facility] Comment on above: Performed By: #### P SUIV #### [facility] [address] [place], [address] MCH (RBC) [Entitic mass] 28.6 pg Normal 27.0-32.0 [facility] Comment on above: Performed By: #### P SUIV #### [facility] [address] [place], [address] MCHC (RBC) [Mass/Vol] 31.5 g/dL Low 32-36 [facility] Comment on above: Performed By: #### P SUIV #### [facility] [address] [place], [address] MCV (RBC) [Entitic vol] 91.0 fL Normal 81-99 [facility] Comment on above: Performed By: #### P SUIV #### [facility] [address] [place], [address] Platelet mean volume (Bld) [Entitic vol] 9.7 fL Normal 6.2-12.0 [facility] Comment on above: Performed By: #### P SUIV #### [facility] [address] [place], [address] Platelets (Bld) [#/Vol] 325 10*3/uL Normal 150-450 [facility] Comment on above: Performed By: #### P SUIV #### [facility] [address] [place], [address] RBC (Bld) [#/Vol] 4.33 10*6/uL Normal 4.2-5.4 [facility] Comment on above: Performed By: #### P SUIV #### [facility] [address] [place], [place], [address] RDW SD 45.6 fl High 35.1-43.9 [facility] Comment on above: Performed By: #### P SUIV #### [facility] [address] [place], [place], [address] WBC (Bld) [#/Vol] 12.1 10*3/uL High 4.4-11.0 [facility] Comment on above: Performed By: #### P SUIV #### [facility] [address] [place], [place], [address] Type AND Screen - PAT ONLYon 03-16-2024 Ab SCREEN GEL Negative Normal [facility] Comment on above: Order Comment: Surge ry Date: 03/22/24Reason for Laboratory Test [id number] D C Performed By: #### P SUIV #### [facility] [address] [place], [place], [address] ABO and Rh group Nom (Bld) Blood group O Rh(D) positive Normal [facility] Comment on above: Order Comment: Surge ry Date: 03/22/24Reason for Laboratory Test [id number] D C Performed By: #### P SUIV #### [facility] [address] [place], [place], [address] Architectural Job Captain Office Visit Reporton 02-29-2024 Architectural Job Captain Office Visit Report [facility] [address] [place], [place] [address] OFFICE VISIT Date of Service: 02/29/24 MR#: [id number] Acct: [id number] Name: CARLOS OLIVERA Rep #: [id number] : 1970 Provider: Dr. Rahel Cheng, Age/Sex: 53/F Location: [facility] Status: Signed Intake Vital Signs 01/22/24 14:23 06/17/24 08:06 02/29/24 08:08 Height 5 ft 4 in 5 ft 4 in 5 ft 4 in Weight: 159 lb 8 oz BMI 27.3 BP 133/83 H Intake Visit Reasons: Surgical consultation Telephone Mechanic Required: No Is patient in pain?: No Allergies naproxen sodium (From Aleve) Allergy (Verified 02/29/24 08:06) Itching, AIRWAY SWELLS amoxicillin Adverse Reaction (Verified 02/29/24 08:06) NAUSEA/VOMITTING hydrocodone bitartrate (From Vicodin) Adverse Reaction (Verified 02/29/24 08:06) NAUSEA/VOMITTING Medications ???Medication ???Instructions ???Recorded ???Confirmed ???Type lisinopril 20 1 tab PO DAILY 11/02/18 02/29/24 History mg-hydrochlorothiazide 25 mg tablet potassium chloride 10 mEq 10 meq PO DAILY 11/13/20 02/29/24 History tablet,extended release albuterol sulfate 90 mcg/actuation 2 puff inhalation Q4H PRN 09/19/22 02/29/24 Rx aerosol inhaler (Ventolin HFA) shortness of breath or wheezing #18 grams venlafaxine 37.5 mg tablet 37.5 mg PO DAILY #90 tabs 12/02/22 02/29/24 Rx dulaglutide 0.75 mg/0.5 mL 3 mg subcut QWEEK Type 2 diabetes 12/18/23 02/29/24 History subcutaneous pen injector (Trulicity) Post menopausal: No Patient : No PFSH Medical History Cancer Depression Dietary restriction Non-smoker Type 2 diabetes mellitus CPAP (continuous positive airway pressure) dependence HTN (hypertension) History of breast cancer Lung collapse Surgical History Hx of adenoidectomy S/P lumpectomy, left breast Family History Grandmother Breast cancer Father Hypertension Prostate cancer Social History Smoking Status: Never smoker alcohol intake: never substance use type: does not use caffeine: No frequency: 1-2 times per week seatbelt use: always do you feel safe at home: Yes additional social history: [employer] Patient works from home HPI Surgical consultation Details: CARLOS OLIVERA is a 53 year old who presents for pre-op exam. She will be scheduled soon for a hysteroscopy dilaiton and curettage. 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 She has not experienced any further bleeding but has a personal history of breast cancer. History 2 Elective abortions Hx Para 2 Spontaneous abortions Hx # Term Pregnancies Ectopic pregnancies Hx # Pregnancies Multiple births # of living children Past Pregnancies Del. Date Name GA/Weeks Outcome Route Bth Weight Gen Labor Lgth Anesthesia Del Locatn Provider FOB Unknown 1996 Gerri Unknown 1999 Tu ROS Const ROS Unobtainable: All systems reviewed are unremarkable except as noted in H Resp Resp: Reports system reviewed and no additional complaints, except as documented; Denies cough GI GI: Reports as per HPI Psych Psych: Reports system reviewed and no additional complaints, except as documented Exam Const General: cooperative, healthy appearing, comfortable and no acute distress Resp Effort Inspection: normal respiratory effort Skin General: no rashes or lesions noted Psych Appearance: grossly normal Speech and Movement: speech and movement normal Coding Level of Care Code Off vis,est,level 4 Diagnoses Thickened endometrium R93.89 Postmenopausal bleeding N95.0 History of breast cancer Z85.3 Assessment and Plan Assessment and Plan (1) Thickened endometrium: Status: Acute (2) Postmenopausal bleeding: Status: Acute Comment: us and plan emb or d and c depending on results (3) History of breast cancer: Status: Acute Comment: 2016- sees Dr Balderrama, [facility], took tamoxifen in the past Plan After discussing the patient's diagnosis and treatment plan options, patient wishes to proceed with surgical management. I have discussed with the patient the risks, benefits, and alternatives of the procedure which include but are not limited to risks of anesthesia, bleeding, infection, possible damage to bowel, bladder, or surrounding vasculature which could lead to additional surgery to evaluate any complications. Patient agrees to procedure and wishes to proceed. ACOG/uptodate references given for additional information regarding procedure. plan is for (more content not included)... Normal [facility] ER (initial)on 01-22-2024 ER (initial) ----- Patient Age/Sex Location Account Attending Physician CARLOS OLIVERA 53/F [facility] [id number] Manoj Alfred Specimen: [id number] Received: 01/27/24 Status: ARIANE Love Num: [id number] Spec Type: IMMUNO Subm Dr: Dr. Rahel Kolb, [facility] [place] [address] SPECIMEN INFORMATION: Tissue Source: Endometrial lining Clinical Info: Post-menopausal bleeding Specimen Number: [id number] CPT code: 62131,[id number] METHODOLOGY: Deparaffinized sections of prefer/formalin-fixed tissue or PAP/DQ stained slides are incubated with monoclonal/polyclonal antibodies/oligonucleotid e probes. Localization is made via biotin free immunoperoxidase method. Appropriate controls are performed and reacted as expected. Results on target cell population are indicated in the following table: RESULTS: ANTIBODY / CLONE RESULT ER (6F11) negative MT (1E2) negative AE1-3 (AE1/AE3/PCK26) positive CK7 (OV-TL12/30) positive CK8 (57hxnyI45) positive CK20 (KS20.8) negative Vimentin (V9) positive, weak CALRET (polyclonal) positive CK5-6 (D5 1684) positive P40 (BC28) negative CEA (11-7/TF-3HB-1) negative P53 (DO-7) negative (null pattern) Ki-67 (30-9) positive, very low These tests were developed and their performance characteristics determined by [facility]. They may not have been cleared or approved by the U.S. Food and Drug Administration. The FDA has determined that such clearance or approval is not necessary. The above immunohistochemical/dualI SH markers are ordered and reviewed by the Pathologist. INTERPRETATION: Endometrial biopsy: Consistent with benign mesothelial cyst. XENIA/ 01/26/24 COMMENT: Patient Age/Sex Location Account Attending Physician CARLOS OLIVERA 53/F LABSPEC [id number] Manoj Alfred INTERPRETATION: (Continued) Case has been reviewed in consultation with Dr. Henriquez who concurs with the above diagnosis. IDC:AM Signed (signature on file) Dr. Asad Goodwin MD 01/27/24 1110 Normal [facility] Comment on above: Performed By: #### P ER #### [facility] [address] [place], [address] Architectural Job Captain Office Visit Reporton 01-22-2024 Architectural Job Captain Office Visit Report [facility] [address] [place] [address] OFFICE VISIT Date of Service: 01/22/24 MR#: [id number] Acct: [id number] Name: CARLOS OLIVERA Rep #: [id number] : 1970 Provider: Dr. Rahel Cheng DO Age/Sex: 53/F Location: [facility] Status: Signed Intake Vital Signs 12/18/23 09:26 01/22/24 14:22 01/22/24 14:23 Height 5 ft 4 in 5 ft 4 in 5 ft 4 in Weight: 161 lb 160 lb 2 oz BMI 27.6 27.4 BP 146/88 H 146/104 H Blood Pressure Location Rt brachial Position Sitting Intake Visit Reasons: VAGINAL BIOPSY Telephone Mechanic Required: No Is patient in pain?: No Allergies naproxen sodium [From Aleve] Allergy (Verified 12/18/23 09:32) Itching, AIRWAY SWELLS amoxicillin Adverse Reaction (Verified 12/18/23 09:32) NAUSEA/VOMITTING hydrocodone bitartrate [From Vicodin] Adverse Reaction (Verified 12/18/23 09:32) NAUSEA/VOMITTING Medications lisinopril 20 mg-hydrochlorothiazide 25 mg tablet 1 tab PO DAILY 11/02/18 [History Confirmed 01/22/24] atenolol 50 mg tablet 50 mg PO DAILY 04/26/19 [History Confirmed 01/22/24] potassium chloride 10 mEq tablet,extended release 10 meq PO DAILY 11/13/20 [History Confirmed 01/22/24] albuterol sulfate 90 mcg/actuation aerosol inhaler (Ventolin HFA) 2 puff inhalation Q4H PRN shortness of breath or wheezing #18 grams 09/19/22 [Rx Confirmed 01/22/24] venlafaxine 37.5 mg tablet 37.5 mg PO DAILY #90 tabs 12/02/22 [Rx Confirmed 01/22/24] dulaglutide 0.75 mg/0.5 mL subcutaneous pen injector (Trulicity) 3 mg subcut QWEEK Type 2 diabetes 12/18/23 [History Confirmed 01/22/24] Post menopausal: No Patient : No : No PFSH PFSH Medical History Cancer CPAP (continuous positive airway pressure) dependence Depression Dietary restriction History of breast cancer HTN (hypertension) Lung collapse Non-smoker Type 2 diabetes mellitus Surgical History Hx of adenoidectomy S/P lumpectomy, left breast Family History Grandmother Breast cancer Father Hypertension Prostate cancer Social History Smoking Status: Never smoker alcohol intake: never substance use type: does not use caffeine: No frequency: 1-2 times per week seatbelt use: always do you feel safe at home: Yes additional social history: Tulio Salvador and Andrez Patient works from home History 2 Elective abortions Hx Para 2 Spontaneous abortions Hx # Term Pregnancies Ectopic pregnancies Hx # Pregnancies Multiple births # of living children Past Pregnancies Del. Date Name GA/Weeks Outcome Route Bth Weight Infant Gen Labor Lgth Anesthesia Del Locatn Provider FOB Unknown 1996 Gerri Unknown 1999 [facility] VAGINAL BIOPSY Details: CARLOS OLIVERA is a 53 year old who presents for EMB due to postmenopausal bleeding and ultrasound finding of 8 mm. ROS Const ROS Unobtainable: All systems reviewed are unremarkable except as noted in H Resp Resp: Reports system reviewed and no additional complaints, except as documented; Denies cough GI GI: Reports as per HPI Psych Psych: Reports system reviewed and no additional complaints, except as documented Exam Const General: cooperative, healthy appearing, comfortable and no acute distress Resp Effort Inspection: normal respiratory effort General: bimanual renal exam normal bilaterally External Female Exam: normal appearance of the urethra Urethra: normal appearance of the urethra Speculum Exam - Vagina: normal appearance of the vagina Speculum Exam - Cervix: normal appearance of the cervix Bimanual Exam- Adnexa, other: normal adnexae and normal Pelvic Support: normal Skin General: no rashes or lesions noted Psych Appearance: grossly normal Speech and Movement: speech and movement normal Office Procedures Endometrial Biopsy Endometrial Biopsy Test: Yes Not Applicable Consent Signed: Yes Time out checklist: patient tenaculum used: Yes dilator used: No Details: Cervix prepped with betadine and pipelle inserted into uterus without complication. Specimen obtained and sent to lab for analysis. All instruments removed from vagina without complications. Excellent hemostasis noted. Coding Level of Care Code Off vis,est,level 3 Diagnoses Postmenopausal bleeding N95.0 Thickened endometrium R93.89 CPT Codes Endometrial Biopsy (17946) Assessment and Plan Assessment and Plan (1) Postmenopausal bleeding: Status: Acute Comment: us and plan emb or d and c depending on results (2) Thickened endometrium: (more content not included)... Normal [facility] Specimen Level Andrew 01-22-2024 Surgery Specimen Level IV Patient Age/Sex Location Account Attending Physician JOSELINCARLOSN 53/F LABSPEC [id number] Dr. Rahel Kolb, Manoj Specimen: [id number] Received: 01/22/24 Status: ARIANE Love Num: [id number] Spec Type: ENDOM BX/C Subm Dr: Dr. Rahel Kolb, DO HEADER OPERATION: Endometrial biopsy PRE-OP DIAGNOSIS: Post-menopausal bleeding TISSUE SUBMITTED: Endometrial lining MICROSCOPIC DIAGNOSIS Endometrial biopsy: Inactive endometrium. See comment. /mr 01/26/24 COMMENT A benign mesothelial cyst with reactive changes is also noted. Immunohistochemistry ([id number]) supports the diagnosis of mesothelial nature of cyst lining. This case is discussed with Dr. Rahel Kolb on 01/27/24. Correlation with clinical findings and appropriate follow up are necessary. Case has been reviewed in consultation with Dr. Henriquez who concurs with the above diagnosis. IDC:AM MICROSCOPIC DESCRIPTION Slides are reviewed. GROSS DESCRIPTION Received is one container labeled with the patient's name and not further designated. The specimen consists of multiple irregular fragments of light dumont soft tissue that in aggregate measure 2.5 x 1.0 x <0.1 cm. The specimen is totally submitted in one cassette. AM/mr 01/25/2024 TC:5 CPT:94492 Patient Age/Sex Location Account Attending Physician CARLOS OLIVERA 53/F LABSPEC [id number] Manoj Alfred Signed (signature on file) Dr. Asad Goodwin MD 01/29/24 1213 Normal [facility] Comment on above: Performed By: #### P JADA #### [facility] [place], [id number] Vital Signs Date Time Vital Sign Value Performing Clinician Bonita wallace 12-20-2024 11:15-0400 Body height 162.[address] Jessa Scott DO Work Phone: [facility] 12-20-2024 11:15-0400 Body mass index (BMI) [Ratio] 27.5 kg/m2 Dr. Jessa Scott DO Work Phone: [facility] 12-20-2024 11:15-0400 Body weight 72.[address] Jessa Scott DO Work Phone: [facility] 12-20-2024 11:15-0400 Diastolic blood pressure 93 mm[Hg] Dr. Jessa Scott DO Work Phone: [facility] 12-20-2024 11:15-0400 Systolic blood pressure 136 mm[Hg] Dr. Jessa Scott DO Work Phone: [facility] 12-18-2023 09:26-0400 Body height 162.[address] Jessa Scott Work Phone: [facility] 12-18-2023 09:26-0400 Body mass index (BMI) [Ratio] 27.6 kg/m2 Dr. Jessa Scott Work Phone: [facility] 12-18-2023 09:26-0400 Body weight 73.[address] Jessa Scott Work Phone: [facility] 12-18-2023 09:26-0400 Diastolic blood pressure 88 mm[Hg] Dr. Jessa Scott Work Phone: [facility] 12-18-2023 09:26-0400 Systolic blood pressure 146 mm[Hg] Dr. Jessa Scott Work Phone: [facility] 12-02-2022 11:20-0400 Body height 162.[address] Jessa Scott Work Phone: [facility] 12-02-2022 11:16-0400 Body mass index (BMI) [Ratio] 30.2 kg/m2 Dr. Jessa Scott Work Phone: [facility] 12-02-2022 11:16-0400 Body weight 79.[address] Jessa Scott Work Phone: [facility] 12-02-2022 11:16-0400 Diastolic blood pressure 97 mm[Hg] Dr. Jessa Scott Work Phone: [facility] 12-02-2022 11:16-0400 Systolic blood pressure 172 mm[Hg] Dr. Jessa Scott Work Phone: [facility] 08-19-2022 13:19-0500 Body mass index (BMI) [Ratio] 30.7 kg/m2 Dr. Jessa Scott Work Phone: [facility] 08-19-2022 13:19-0500 Body temperature 95.3 [degF] Dr. Jessa Scott Work Phone: [facility] 08-19-2022 13:19-0500 Body weight 81.[address] Jessa Scott Work Phone: [facility] 08-19-2022 13:19-0500 Diastolic blood pressure 103 mm[Hg] Dr. Jessa Scott Work Phone: [facility] 08-19-2022 13:19-0500 Heart rate 86 /min Dr. Jessa Scott Work Phone: [facility] 08-19-2022 13:19-0500 SaO2% (BldA) [Mass fraction] 90 % Dr. Jessa Scott Work Phone: [facility] 08-19-2022 13:19-0500 Systolic blood pressure 158 mm[Hg] Dr. Jessa Scott Work Phone: [facility] 06-05-2022 09:44-0400 Body height 162.[address] Jessa Scott Work Phone: [facility] Work Phone: 06-05-2022 09:44-0400 Body mass index (BMI) [Ratio] 30.6 kg/m2 Dr. Jessa Scott Work Phone: [facility] Work Phone: 06-05-2022 09:44-0400 Body temperature 96.9 [degF] Dr. Jessa Scott Work Phone: [facility] Work Phone: 06-05-2022 09:44-0400 Body weight 80.[address] Jessa Scott Work Phone: [facility] Work Phone: 06-05-2022 09:44-0400 Diastolic blood pressure 84 mm[Hg] Dr. Jessa Scott Work Phone: [facility] Work Phone: 06-05-2022 09:44-0400 Heart rate 80 /min Dr. Jessa Scott Work Phone: [facility] Work Phone: 06-05-2022 09:44-0400 Respiratory rate 18 /min Dr. Jessa Scott Work Phone: [facility] Work Phone: 06-05-2022 09:44-0400 SaO2% (BldA) [Mass fraction] 98 % Dr. Jessa Scott Work Phone: [facility] Work Phone: 06-05-2022 09:44-0400 Systolic blood pressure 151 mm[Hg] Dr. Jessa Scott Work Phone: [facility] Work Phone: Encounters Encounter Date Encounter Type Care Provider Facility Start: 12-20-2024 Encounter for gynecological examination (general) (routine) with abnormal findings Abi Watts [facility] Start: 12-20-2024 End: 12-20-[address] Abi Watts [facility] Work Phone: Start: 12-20-2024 End: 12-20-[address] Abi Watts MD [facility] Start: 12-20-2024 End: 12-20-[address] Jessa Scott DO Work Phone: [facility] Work Phone: Start: 12-20-2024 End: 12-20-2024 ambulatory Abi Watts Facility:[facility] Start: 08-24-2024 End: 08-24-2024 ambulatory Courtney Gaming NP Facility:[facility] Start: 04-07-2024 Encounter for other preprocedural examination [facility] Start: 04-05-2024 End: 04-05-2024 ambulatory Lexi Ness NP Facility:[facility] Start: 03-22-2024 End: 03-22-2024 ambulatory Jessa Scott Facility:[facility] Start: 02-29-2024 End: 02-29-2024 ambulatory Jessa Scott Facility:[facility] Start: 01-22-2024 End: 01-22-2024 ambulatory Jessa Scott Facility:[facility] Start: 01-22-2024 End: 01-22-2024 ambulatory Rahel Kolb Facility:[facility] Start: 12-26-2023 End: 12-26-[address] Jessa Scott Work Phone: [facility] Work Phone: Start: 12-26-2023 End: 12-26-[address] Jessa Scott Work Phone: [facility] Work Phone: Start: 12-18-2023 End: 12-18-[address] Jessa Scott Work Phone: [facility] Work Phone: Start: 12-18-2023 End: 12-18-[address] Jessa Scott Work Phone: [facility] Work Phone: Start: 12-02-2022 End: 12-02-[address] Jessa Scott Work Phone: [facility] Work Phone: Start: 12-02-2022 End: 12-02-[address] Jessa Scott Work Phone: [facility] Start: 08-19-2022 End: 08-19-[address] [facility] Start: 07-08-2022 End: 07-08-[address] Jessa Scott Work Phone: [facility] Work Phone: Start: 07-08-2022 End: 07-08-[address] Jessa Scott Work Phone: [facility] Start: 06-05-2022 End: 06-05-[address] Jessa Scott Work Phone: [facility] Procedures Date Procedure Procedure Detail Performing Clinician Start: 12-20-2024 Screening mammography D ryan Scott DO Work Phone: Start: 12-26-[address] Areli Scott Work Phone: Start: 12-26-[address] Jessa Scott Work Phone: Start: 12-18-2023 Screening mammography D ryan Scott Work Phone: Start: 12-02-2022 Screening mammography D ryan Scott Work Phone: H/O: surgery H/O dilation and curettage Dr. Jessa Scott DO Work Phone: Comment on above: benign path Plan of Treatment Date Care Activity Detail Author US Pel[facility] transvaginal [facility] Payers Date Payer Category Payer Self-pay [id number] 2023 Private Health Insurance [id number] 2015 Unknown [employer] [id number] Private Health Insurance [employer]ET[employer] [id number] Unknown [id number] Unknown [id number] 62 Unknown [id number] 62 Unknown [id number] 62 Unknown [id number] 62 Unknown [id number] 62 Unknown [id number] 62 Unknown [id number] 62 Unknown [id number] 62 Unknown [id number] 62 Social History Date Type Detail Facility Start: 06-05-2022 End: 12-18-2023 Tobacco smoking status NHIS Unknown if ever smoked [facility] Start: 01-15-[address] [facility] Start: 01-15-2016 Spouse/ Signif icant Other [facility] Start: 01-15-[address] Non-sm[address] [facility] Start: 1970 Sex Assigned At Female [facility] Start: 12-20-2024 Tobacco smoking status NHIS Never smoked tobacco (finding) [facility] Start: 12-26-2024 Sex Female (finding) [facility] Evaluation note 12-20-2024 Note Date & Type Note Facility 12-20-2024 Evaluation note Diagnosis Onset Date Resolution History of breast cancer acute December 20, 2024 11:12am Postmenopausal bleeding inactive A pril 2024 11:12am Encounter for routine gynecological examination noneactive December 20, 2024 11:12am [facility] Work Phone: Clinical Note 03-22-2024 Note Date & Type Note Facility 03-22-2024 Note [facility] Medical Records Department [address] [place] [address] History Physical Exam 03/22/24926 MR#: [id number] Acct: [id number] Name: CARLOS OLIVERA Rep #: [id number] : 1970 53 From: Rahel Kolb DO PCP: Dr. Jessa Scott, DO Status:[facility] Location: [place] [address] History and Physical Date of Admission: 03/22/24 Intake Vital Signs 01/21/2414:23 02/29/2408:06 02/29/2408:08 Height 5 ft 4 in 5 ft 4 in 5 ft 4 in Weight: 159 lb 8 oz BMI 27.3 BP 133/83 H Intake Visit Reasons: Surgical consultation Telephone Mechanic Required: No Is patient in pain?: No Allergies naproxen sodium (From Aleve) Allergy (Verified 02/29/24 08:06) Itching, AIRWAY SWELLSamoxicillin Adverse Reaction (Verified 02/29/24 08:06) NAUSEA/VOMITTINGhydrocodone bitartrate (From Vicodin) Adverse Reaction (Verified 02/29/24 08:06) NAUSEA/VOMITTING Medications ???Medication ???Instructions ???Recorded ???Confirmed ???Type lisinopril 20 1 tab PO DAILY 11/02/18 02/29/24 History mg-hydrochlorothiazide 25 mg tablet potassium chloride 10 mEq 10 meq PO DAILY 11/13/20 02/29/24 History tablet,extended release albuterol sulfate 90 mcg/actuation 2 puff inhalation Q4H PRN 09/19/22 02/29/24 Rx aerosol inhaler (Ventolin HFA) shortness of breath or wheezing #18 grams venlafaxine 37.5 mg tablet 37.5 mg PO DAILY #90 tabs 12/02/22 02/29/24 Rx dulaglutide 0.75 mg/0.5 mL 3 mg subcut QWEEK Type 2 diabetes 12/18/23 02/29/24 History subcutaneous pen injector (Trulicity) Post menopausal: No Patient : No PFSH Medical History Cancer Depression Dietary restriction Non-smoker Type 2 diabetes mellitus CPAP (continuous positive airway pressure) dependence HTN (hypertension) History of breast cancer Lung collapse Surgical History Hx of adenoidectomy S/P lumpectomy, left breast Family History Grandmother Breast cancerFather Hypertension Prostate cancer Social History Smoking Status: Never smoker alcohol intake: never substance use type: does not use caffeine: No frequency: 1-2 times per week seatbelt use: always do you feel safe at home: Yes additional social history: Tulio Gillis Patient works from home HPI Surgical consultation Details: CARLOS OLIVERA is a 53 year old who presents for pre-op exam. She will be scheduled soon for a hysteroscopy dilaiton and curettage. 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 She has not experienced any further bleeding but has a personal history of breast cancer. History 2 Elective abortions Hx Para 2 Spontaneous abortions Hx # Term Pregnancies Ectopic pregnancies Hx # Pregnancies Multiple births # of living children Past Pregnancies Del. Date Name GA/Weeks Outcome Route Bth Weight Gen Labor Lgth Anesthesia Del Locatn Provider FOB Unknown 1996 Gerri Unknown 1999 [facility] ROS Const ROS Unobtainable: All systems reviewed are unremarkable except as noted in H Resp Resp: Reports system reviewed and no additional complaints, except as documented; Denies cough GI GI: Reports as per HPI Psych Psych: Reports system reviewed and no additional complaints, except as documented Exam Const General: cooperative, healthy appearing, comfortable and no acute distress Resp Effort Inspection: normal respiratory effort Skin General: no rashes or lesions noted Psych Appearance: grossly normal Speech and Movement: speech and movement normal Coding Level of Care Code Off vis,est,level 4 Diagnoses Thickened endometrium R93.89 Postmenopausal bleeding N95.0 History of breast cancer Z85.3 Assessment and Plan Assessment and Plan (1) Thickened endometrium: Status: Acute (2) Postmenopausal bleeding: Status: Acute Comment: us and plan emb or d and c depending on results (3) History of breast cancer: Status: Acute Comment: 2016- sees Dr Balderrama, [facility], took tamoxifen in the past Plan After discussing the patient's diagnosis and treatment plan options, patient wishes to proceed with surgical management. I have discussed with the patient the risks, benefits, and alternatives of the procedure which include but are not limited to risks of anesthesia, bleeding, infection, possible damage to bowel, bladder, or surrounding vasculature which could lead to additional surgery to evaluate any complications. Patient agrees to procedure and wishes to proceed. ACOG/uptodate references given for additional information regarding procedure. ish (more content not included)... [facility] Evaluation note Note Date & Type Note Facility Evaluation note Diagnosis Onset Date Asthma, mild intermittent, well-controlled chronic AMELIE (obstructive sleep apnea) chronic [facility] Work Phone: Evaluation note Note Date & Type Note Facility Evaluation note Diagnosis Onset Date Asthma, mild intermittent, well-controlled chronic AMELIE (obstructive sleep apnea) chronic Encounter for routine gyneco logical examination noneactive [facility] Work Phone: Evaluation note Note Date & Type Note Facility Evaluation note Diagnosis Onset Date History of breast cancer acu te Postmenopausal bleeding acut e Encounter for routine gyneco logical examination noneactive [facility] Work Phone: Reason for referral (narrative) Note Date & Type Note Facility Reason for referral (narrative) No reason for referral information available [facility] Work Phone: Chief Complaint and Reason for Visit Chief Complaint 1 Y FU AMELIE,REPAP CPAP *INVENTORY TAGGED Reason for Visit Asthma, mild intermi ttent, well-controlled AMELIE (obstructive sleep apnea) Chief Complaint fu for cpap 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) Reason for Visit Asthma, mild intermi ttent, well-controlled AMELIE (obstructive sleep apnea) Encounter for routine gynecological examination Chief Complaint 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) Reason for Visit History of breast ca ncer Postmenopausal bleeding Encounter for routine gynecological examination Chief Complaint 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) POSTMENOPAUSAL BLEEDING Reason for Visit History of breast ca ncer Postmenopausal bleeding Encounter for routine gynecological examination Chief Complaint Admit Date Annual (SOFTWARE ENGINEERING MANAGER) December 20, 2024 11:1 2am SCREENING December 20, 2024 11:4 9am Reason for Visit Admit Date History of breast cancer December 20, 2024 11:12am Postmenopausal bleeding December 20, 2024 11:12am Encounter for routine gynecological exam ination December 20, 2024 11:12am Family History No Family History Records Found Relationship Condition Age at Onset Recorded Date/T shauna grandmother Malignant neoplasm of breast Unknown father Hypertension Unknown Malignant neoplasm of prostate Unknown Relationship Condition Age at Onset Recorded Date/T shauna grandmother Malignant neoplasm of breast Unknown father Hypertension Unknown Malignant neoplasm of prostate Unknown Alzheimer's disease Unknown Advance Directives No Advanced Directives Records Found Advance Directive Response Recorded Date/ Time Advance Directives Yes March 29 11:26am Living Will Yes June 10, 2021 12:14pm Power of [employer] Yes May 12:14pm Advance Directive Response Recorded Date/ Time Living Will Yes March 14, 2024 1 1:07am Do you have a Healthcare Power of [employer]? Yes March 14, 2024 11:07am Advance Directives Yes March 29 11:26am Summary Purpose Additional Source Comments Goals (unrecognized section and content) Goals may be documented in a n alternate sectionGoals may be documented in an alternate sectionGoals may be documented in an alternate sectionGoals may be documented in an alternate sectionGoals may be documented in an alternate section Care Teams (unrecognized sec tion and content) Team Status: Active Member Role Status Dates Dr. Jessa Scott , DO Family Provider Active Dr. Jessa Scott , DO Primary Care Provider Active Team Status: Inactive Member Role Status Dates Dr. Jessa Scott DO Primary Care Provider, Referring P rovider Active Dr. Abi Watts MD Attending Provider Active Team Status: Inactive Member Role Status Dates Dr. Jessa Scott DO Primary Care Provider, Referring P rovider Active [employer] REALTIME [employer] REPORTER, REALTIME COURT REPORTER-C Attending Provider Active Team Status: Inactive Member Role Status Dates Dr. Jessa Scott DO Primary Care Provider Active Dr. Abi Watts MD Attending Provider Active Team Status: Inactive Member Role Status Dates Dr. Jessa Scott DO Primary Care Provider Active Dr. Abi Watts MD Attending Provider, Referr ing Provider Active Team Status: Active Member Role Status Dates Dr. Jessa Scott DO Primary Care Provider Active Team Status: Inactive Member Role Status Dates Dr. Jessa Scott DO Primary Care Provider Active Start: December 20, 2024 End: December 20, 2024 Dr. Jessa Scott DO Referring Provider Active St art: December 20, 2024 End: December 20, 2024 Dr. Abi Watts MD Attending Provider Active Start: December 20, 2024 End: December 20, 2024 Team Status: Inactive Member Role Status Dates Dr. Jessa Scott DO Primary Care Provider Active Start: December 20, 2024 End: December 20, 2024 Dr. Abi Watts MD Attending Provider Active Start: December 20, 2024 End: December 20, 2024 Dr. Abi Watts MD Referring Provider Active Start: December 20, 2024 End: December 20, 2024 INFORMATION SOURCE (unrecogn ized section and content) DATE CREATED AUTHOR 12/28/2024 [facility] FOR RECORDS PERTAINING TO PATIENTS WHO ARE OR HAVE BEEN ENROLLED IN A CHEMICAL DEPENDENCY/SUBSTANCEABUSE PROGRAM, SOME INFORMATION MAY BE OMITTED. This clinical summary was aggregated from multiple sources. Caution should be exercised in using it in the provision of clinical care. This summary normalizes information from multiple sources, and as a consequence, information in this document may materially change the coding, format and clinical context of patient data. In addition, data may be omitted in some cases. CLINICAL DECISIONS SHOULD BE BASED ON THE PRIMARY CLINICAL RECORDS. [employer] provides no warranty or guarantee of the accuracy or completeness of information in this document.
== END | disposition home or self-care (01) ==
LOC: RAD 11:39
PROVIDERS: PCP Family Medicine; Referring Provider Family Medicine; Visit Provider Family Medicine
DX: J32.1 Chronic frontal sinusitis (principal); M54.2 Cervicalgia
CPT/HCPCS: 70220; 72050